=== PATIENT | male | born 1995 | race Caucasian/White ===

== ENCOUNTER 2018-05-22 18:30 | Emergency (ER) | payer SELFPAY ==
[~2018-05-22] VITALS: Ht 172.7 cm; Wt 70.0 kg
[2018-05-22 18:47] VITALS: BP 129/87; PULSE 91; RESP 18; TEMP 98.4; O2SAT 99
[2018-05-22 19:00] VITALS: BP 189/118; PULSE 86; RESP 18; O2SAT 96
--- NOTE | 2018-05-22 20:49 | PD ---
HPI Chief Complaint: Abdominal Pain Time Seen by Provider: 20:42 Travel History International Travel<30 days: No Contact w/Intl Traveler<30days: No Traveled to known affect area: No History of Present Illness HPI Patient is a 23-year-old male who has had Crohn's disease since he was 18 the 8 months ago had a perirectal abscess drained surgically in [place] where he is from now he says it continued to drain pus every day and he has no doctor here in the state of [place] he is not on any prednisone he is not on mercaptopurine he is on Asacol he is on no meds for Crohn's he has a surgical history of having had a colostomy at the age of 18 it was afraid months and then had a reanastomosis surgery done current complaint is diarrhea excessive draining from a perirectal abscess fistula and patient is denying nausea denying fever he has not taking any medication for this and he has no doctor nor any medication prescribed at this time recently moved to [place] from [facility] Past Medical History Diminished Hearing: No Gastrointestinal Disorders: Yes (CRHONS) Immunizations Current: Yes Pancreatitis: Yes ?: Not Past Surgical History Genitourinary Surgery: Yes (CHOLOSTOMY WITH REVERSAL) Tonsillectomy: Yes Social History Alcohol Use: No Tobacco Use: Yes (/2 PPD) Substance Use: No Allergies-Medications (Allergen,Severity, Reaction): Coded Allergies: adhesive (Verified Allergy, Severe, 05/22/18) Reported Meds & Prescriptions Reported Meds & Active Scripts Active Tramadol (Tramadol HCl) 50 Mg Tab 50 Mg PO Q6H PRN Prednisone 20 Mg Tab 40 Mg PO DAILY Flagyl (Metronidazole) 500 Mg Tab 500 Mg PO TID Cipro (Ciprofloxacin HCl) 500 Mg Tab 500 Mg PO BID Review of Systems Except as stated in HPI: all other systems reviewed are Neg General / Constitutional: No: Fever, Chills Gastrointestinal: Positive: Nausea, Diarrhea (Rectal pain and drainage from a rectal fistula from perirectal abscess), Abdominal Pain Physical Exam Narrative GENERAL: Nontoxic appearing awake alert afebrile SKIN: Warm and dry. HEAD: Atraumatic. Normocephalic. EYES: Pupils equal and round. No scleral icterus. No injection or drainage. ENT: No nasal bleeding or discharge. Mucous membranes pink and moist. NECK: Trachea midline. No JVD. CARDIOVASCULAR: Regular rate and rhythm. RESPIRATORY: No accessory muscle use. Clear to auscultation. Breath sounds equal bilaterally. GASTROINTESTINAL: Abdomen soft, tenderness lower abdomen right as well suprapubic as well as left patient has no pain in the epigastrium nor no pain in the right upper quadrant Rectal exam is there is a fistula on the left perirectal area draining yellowish purulent like drainage no significant abscess felt but there is a fistula but has a drainage. MUSCULOSKELETAL: Extremities without clubbing, cyanosis, or edema. No obvious deformities. NEUROLOGICAL: Awake and alert. No obvious cranial nerve deficits. Motor grossly within normal limits. Five out of 5 muscle strength in the arms and legs. Normal speech. PSYCHIATRIC: Appropriate mood and affect; insight and judgment normal. Data Data Last Documented VS Vital Signs Date Time Temp Pulse Resp B/P (MAP) Pulse Ox O2 Delivery O2 Flow Rate FiO2 05/23/18 06:11 05/23/18 05:00 71 18 99 Room Air 05/22/18 18:47 98.4 Orders Orders Diatrizoate Liq ( Gastroview Liq) (05/22/18 21:00) Sodium Chlor 0.9% 1000 Ml Inj (Ns 1000 M (05/22/18 21:00) Complete Blood Count With Diff (05/22/18 20:49) Comprehensive Metabolic Panel (05/22/18 20:49) Blood Culture (05/22/18 20:49) Lipase (05/22/18 20:49) Lactic Acid (05/22/18 20:49) Oral Contrast - Adult (05/22/18 20:55) Morphine Inj (Morphine Inj) (05/22/18 22:30) Ct Abd/Pel W Iv Contrast(Rout) (05/23/18 ) Iohexol 350 Inj (Omnipaque 350 Inj) (05/23/18 00:30) Piperacil-Tazo 3.375 Gm Premix (Zosyn 3. (05/23/18 02:00) Vancomycin Inj (Vancomycin Inj) (05/23/18 02:00) Morphine Inj (Morphine Inj) (05/23/18 03:15) Ed Discharge Order (05/23/18 05:55) Labs Laboratory Tests Test 05/22/18 21:00 White Blood Count 12.6 TH/MM3 Red Blood Count 5.23 MIL/MM3 Hemoglobin 15.7 GM/DL Hematocrit 46.5 % Mean Corpuscular Volume 88.9 FL Mean Corpuscular Hemoglobin 30.0 PG Mean Corpuscular Hemoglobin Concent 33.7 % Red Cell Distribution Width 15.0 % Platelet Count 395 TH/MM3 Mean Platelet Volume 6.3 FL Neutrophils (%) (Auto) 68.1 % Lymphocytes (%) (Auto) 23.9 % Monocytes (%) (Auto) 5.1 % Eosinophils (%) (Auto) 1.5 % Basophils (%) (Auto) 1.4 % Neutrophils # (Auto) 8.6 TH/MM3 Lymphocytes # (Auto) 3.0 TH/MM3 Monocytes # (Auto) 0.6 TH/MM3 Eosinophils # (Auto) 0.2 TH/MM3 Basophils # (Auto) 0.2 TH/MM3 CBC Comment DIFF FINAL Differential Comment Blood Urea Nitrogen 13 MG/DL Creatinine 1.03 MG/DL Random Glucose 82 MG/DL Total Protein 8.2 GM/DL Albumin 3.8 GM/DL Calcium Level 9.4 MG/DL Alkaline Phosphatase 93 U/L Aspartate Amino Transf (AST/SGOT) 14 U/L Alanine Aminotransferase (ALT/SGPT) 17 U/L Total Bilirubin 0.4 MG/DL Sodium Level 140 MEQ/L Potassium Level 3.5 MEQ/L Chloride Level 105 MEQ/L Carbon Dioxide Level 27.7 MEQ/L Anion Gap 7 MEQ/L Estimat Glomerular Filtration Rate 89 ML/MIN Lactic Acid Level 1.4 mmol/L Lipase 153 U/L MDM Medical Decision Making Medical Screen Exam Complete: Yes Emergency Medical Condition: Yes Differential Diagnosis Differential diagnosis includes Crohn exacerbation perirectal abscess fistula versus anal fissure versus ulcerative colitis versus colitis NOS versus other Narrative Course CT ordered labs ordered blood cultures lactic acid exam shows a fistula with drainage of purulent-like material Pt offered admission but he would like to follow up as an outpt , I spoke to Dr Marc and he will see as outpt , I given flagyl and cipro . pt refused admission and want to take prednisone an dcipro to see if symptoms resolve Dr Marc Phone given to pt follow up as outpt Physician Communication Physician Communication Dr Marc colorectal Diagnosis Primary Impression: Rectal abscess Referrals: Andrew Marc MD Patient Instructions: General Instructions, Rectal Abscess (ED) Scripts Tramadol (Tramadol) 50 Mg Tab 50 MG PO Q6H Y for PAIN, #12 TAB 0 Refills Prov: Phil Be MD 05/23/18 Prednisone (Prednisone) 20 Mg Tab 40 MG PO DAILY, #14 TAB 0 Refills Prov: Phil Be MD 05/23/18 Metronidazole (Flagyl) 500 Mg Tab 500 MG PO TID for Infection, #30 TAB 0 Refills Prov: Phil eB MD 05/23/18 Ciprofloxacin (Cipro) 500 Mg Tab 500 MG PO BID for Infection, #20 TAB 0 Refills Prov: Phil Be MD 05/23/18 Disposition: 01 DISCHARGE HOME Condition: Good Phil Be MD May 22, 2018 20:49
[2018-05-22] MEDS ORDERED: DIATRIZOATE MEGLUM/DIATRIZOATE SOD 9 ML CUP PO ONE (21:00)
[2018-05-22] MEDS ORDERED: SODIUM CHLOR 0.9% 1000 ML INJ 1,000 ML IV ONE (21:00)
[2018-05-22 21:18] VITALS: BP 117/80; PULSE 75; RESP 18; O2SAT 99
[2018-05-22 21:35] LABS: AUTOMATED NEUTROPHIL # 8.6 TH/MM3 (1.8-7.7); BASOPHIL # 0.2 TH/MM3 (0-0.2); BASOPHIL % 1.4 % (0.0-2.0); EOSINOPHIL # 0.2 TH/MM3 (0-0.4); EOSINOPHIL % 1.5 % (0.0-4.0); HEMATOCRIT 46.5 % (39.0-51.0); HEMOGLOBIN 15.7 GM/DL (13.0-17.0); LYMPH % 23.9 % (9.0-44.0); MEAN CELL VOLUME 88.9 FL (80.0-100.0); MEAN CORPUSCULAR HGB CONC 33.7 % (32.0-36.0); MEAN PLATELET VOLUME 6.3 FL (7.0-11.0); MONO % 5.1 % (0.0-8.0); MONOCYTE # 0.6 TH/MM3 (0-0.9); NEUT % 68.1 % (16.0-70.0); PLATELET COUNT 395 TH/MM3 (150-450); RED BLOOD COUNT 5.23 MIL/MM3 (4.50-5.90); WHITE BLOOD COUNT 12.6 TH/MM3 (4.0-11.0)
[2018-05-22 22:03] LABS: ALBUMIN 3.8 GM/DL (3.4-5.0); AST (GOT) 14 U/L (15-37); BICARBONATE 27.7 MEQ/L (21.0-32.0); BLOOD UREA NITROGEN 13 MG/DL (7-18); CALCIUM 9.4 MG/DL (8.5-10.1); CHLORIDE 105 MEQ/L (98-107); CREATININE 1.03 MG/DL (0.60-1.30); GLOMERULAR FILTRATION RATE 89 ML/MIN (>89); GLUCOSE,RANDOM 82 MG/DL (74-106); SODIUM (NA) 140 MEQ/L (136-145)
[2018-05-22 22:04] LABS: ALT (GPT) 17 U/L (12-78)
[2018-05-22 22:06] LABS: ALKALINE PHOSPHATASE 93 U/L (45-117); TOTAL BILIRUBIN ADULT 0.4 MG/DL (0.2-1.0); TOTAL PROTEIN 8.2 GM/DL (6.4-8.2)
[2018-05-22] MEDS ORDERED: MORPHINE SULFATE 4 MG/ML INJ IV PUSH ONE (22:30)
[2018-05-23] MEDS ORDERED: IOHEXOL 350 MG/ML 10 ML VIAL (for RAD DIAG) IVCONTRAST ONE (00:30)
[2018-05-23 00:48] VITALS: BP 109/69; PULSE 63; RESP 18; O2SAT 97
--- NOTE | 2018-05-23 01:33 | RADRPT ---
EXAM DATE: 05/23/2018 1:25 AM EDT AGE/SEX: 23 years / Male INDICATIONS: Perirectal abscess. CLINICAL DATA: This is the patient's initial encounter. Patient reports that signs and symptoms have been present for 7 - 11 months and indicates a pain score of 8/10. MEDICAL/SURGICAL HISTORY: Crohn's disease. Pancreatitis. Colostomy. Patient had an abscess dra bella in [place] 8 months ago. ORAL CONTRAST: Prescribed oral contrast ingested. RADIATION DOSE: 6.64 CTDI (mGy) COMPARISON: No prior exams available for comparison. TECHNIQUE: Multiple contiguous axial images were obtained through the abdomen and pelvis following b olus infusion of 95 ml Omnipaque 350 (iohexol) nonionic water-soluble contrast as a single exam dos e. Prescribed oral contrast ingested. Using automated exposure control and adjustment of the mA and/ or kV according to patient size, radiation dose was kept as low as reasonably achievable to obtain op timal diagnostic quality images. DICOM format image data is available electronically for review and comparison. FINDINGS: Lower Lungs: The visualized lower lungs are clear. Liver: The liver has a homogeneous density without space-occupying lesion. There is no dilation of th e biliary tree. Spleen: Homogeneous density without enlargement. Pancreas: Unremarkable without mass or calcification. Kidneys: Normal in size and shape. No evidence of mass or hydronephrosis. Adrenal Glands: Unremarkable. Aorta: The aorta and proximal iliac vessels are grossly unremarkable without aneurysmal dilation. Bowel/Mesentery: There is unremarkable bowel gas pattern. Perirectal soft tissues are abnormally pro minent and indistinct with patchy areas of enhancement. There are several small gas collections along the right side of the rectum. There is a small fluid collection is well measuring up to approximatel y 2 cm in greatest diameter. Abdominal Wall: Intact. Retroperitoneum: No evidence of adenopathy in the retrocrural, para-aortic, or deep pelvic regions. Bladder: Contours are smooth. Reproductive Organs: No abnormal masses or calcifications seen. Inguinal: The inguinal region is unremarkable without evidence of adenopathy. Bony Structures: Unremarkable. CONCLUSION: 1. Perirectal abscess with soft tissue thickening, irregular enhancement and multiple small gas nicki ections and fluid along the right side. Electronically signed by: Martin Sanhcez MD 05/23/2018 1:32 AM EDT
[2018-05-23] MEDS ORDERED: PIPERACIL-TAZO 3.375 GM PREMIX 50 ML IV ONE (02:00)
[2018-05-23] MEDS ORDERED: VANCOMYCIN INJ 1,000 MG in SODIUM CHLOR 0.9% 250 ML INJ 250 ML IV ONE (02:00)
[2018-05-23] MEDS ORDERED: MORPHINE SULFATE 4 MG/ML INJ IV PUSH ONE (03:15)
[2018-05-23 05:00] VITALS: BP 113/77; PULSE 71; RESP 18; O2SAT 99
[2018-05-23] MEDS ORDERED: CIPR-9 PO (05:54)
[2018-05-23] MEDS ORDERED: METR-1 PO (05:54)
[2018-05-23] MEDS ORDERED: TRAM50TA PO (05:55)
[2018-05-23] MEDS ORDERED: PRED20 PO (05:55)
== END 2018-05-23 06:11 | disposition home or self-care (01) ==
LOC: NEPE 18:30
DX: K61.1 Rectal abscess (principal); F17.200 Nicotine dependence, unspecified, uncomplicated; Z87.19 Personal history of other diseases of the digestive system; Z79.899 Other long term (current) drug therapy
CPT/HCPCS: 74177; 80053; 83605; 83690; 85025; 87040; 96361; 96365; 96367; 96375; 96376; 99285; J2270; J2543; J3370; J7030; J7050; Q9963; Q9967

== ENCOUNTER 2018-07-12 05:33 | Inpatient (IN) ==
[2018-07-12] MEDS ORDERED: Morphine Inj 4 MG/ML Vial IV.PUSH ONE ×2 (07:54→11:52)
[2018-07-12] MEDS ORDERED: Sod Chloride 0.9% Inj 1,000 ML IV.SIG ONE (07:54)
[2018-07-12 08:17] LABS: Baso # (Auto) 0.1 th/mm3 (0.0-0.2); Baso % (Auto) 0.5 % (0.0-2.0); Eos # (Auto) 0.2 th/mm3 (0.0-0.4); Lymph # (Auto) 3.4 th/mm3 (1.0-4.8); Lymph % (Auto) 21.8 % (9.0-44.0); Mean Corpuscular HGB Conc 33.4 % (32.0-36.0); Mean Corpuscular Hemoglobin 31.1 pg (27.0-34.0); Mean Corpuscular Volume 93.1 fL (80.0-100.0); Mean Platelet Volume 6.3 fL (7.0-11.0); Mono # (Auto) 1.3 th/mm3 (0.0-0.9); Mono % (Auto) 8.3 % (0.0-8.0); Neut # (Auto) 10.7 th/mm3 (1.8-7.7); Neut % (Auto) 68.4 % (16.0-70.0); Platelet Count 344 th/mm3 (150-450); Red Blood Count 4.83 mil/mm3 (4.50-5.90); Red Cell Distribution Width 14.8 % (11.6-17.2); White Blood Count 15.6 th/mm3 (4.0-11.0)
--- NOTE | 2018-07-12 08:18 | ED ---
HPI General Chief Complaint: Abdominal Pain Stated Complaint: Abd pain Time Seen by Provider: 07/12/18 07:40 Source: patient Mode of arrival: ambulatory Limitations: no limitations History of Present Illness HPI narrative: Patient is a 23-year-old male, past medical history significant for Crohn's disease, not currently on any medications nor followed by GI here, who presents with complaint of worsening abscess. He states that approximately months ago he was diagnosed with a perirectal abscess which has been intermittently draining since. He states that the pain has worsened and he can no longer lie on his back to sleep. He also complains of right lower quadrant abdominal pain which has been ongoing throughout most of this illness and migrates to the right side of his groin. He has had diarrhea which has been bloody but no fever that he is aware of. No chest pain or shortness of breath. complaint: abdominal pain Onset (ago): month(s) Pain Consistency: constant Location: RLQ Severity: mild Quality: stabbing Relieving factors: nothing Exacerbating factors: bowel movement Associated symptoms: diarrhea Related Data Home Medications Medication Instructions Recorded Confirmed No Known Home Medications 07/12/18 07/12/18 Allergies Allergy/AdvReac Type Severity Reaction Status Date / Time adhesive Allergy Severe Rash Verified 07/12/18 06:13 Review of Systems ROS: all other systems reviewed are negative Constitutional Denies chills and Denies fever(s) Eyes Denies blurry vision ENT Denies nasal congestion Cardiovascular Denies chest pain Respiratory Denies dyspnea Gastrointestinal Reports abdominal pain, Reports diarrhea, Denies nausea and Denies vomiting Genitourinary Denies flank pain Musculoskeletal Denies back pain Integumentary/Breasts Denies rash Neurologic Denies dizziness and Denies headache(s) Psychiatric Denies confusion Hematologic/Lymphatic Denies easy bruising [facility] Medical History Medical History Crohns disease (Acute) Rectal abscess (Acute) Social History Social History Substance History: No History of Abuse Second Hand Smoke Exposure: Yes Smoking Status: Current every day smoker Tobacco Type: Cigarettes How Often Do You Have a Drink Containing Alcohol: Never Recent Travel in [facility] within the Last 8 Weeks: No Recent Out of Country Travel within the Last 8 Weeks: No Immunization History Tetanus Immunization: Never Vaccinated Hx Influenza Vaccine This Season: Yes Exam Narrative Exam Narrative: GENERAL: Well-appearing male in no acute distress, lying on his left side SKIN: Focused skin assessment warm/dry. No rashes. HEAD: Atraumatic. Normocephalic. EYES: Pupils equal and round. No scleral icterus. No injection or drainage. ENT: No nasal bleeding or discharge. Mucous membranes pink and moist. NECK: Trachea midline. No JVD. CARDIOVASCULAR: Regular rate and rhythm. No murmur appreciated. RESPIRATORY: No accessory muscle use. Clear to auscultation. Breath sounds equal bilaterally. GASTROINTESTINAL: Abdomen soft, nondistended. Slight tenderness in the right lower quadrant. Scars from previous colostomy and reversal. Hepatic and splenic margins not palpable. Area of induration, and erythema, swelling around the rectum with purulent drainagepatient did not tolerate a rectal exam (RN was also at bedside). Right inguinal lymphadenopathy. MUSCULOSKELETAL: No obvious deformities. No clubbing. No cyanosis. No edema. NEUROLOGICAL: Awake and alert. No obvious cranial nerve deficits. Motor grossly within normal limits. Normal speech. PSYCHIATRIC: Appropriate mood and affect; insight and judgment normal. Course Hospital Course: On arrival, IV was established. Analgesics. anti-emetics and fluids ordered with labs, and CT. Initial Documented Vital Signs Temperature 98.3 F 07/12/18 06:13 Pulse Rate 90 07/12/18 06:13 Respiratory Rate 16 07/12/18 06:13 Blood Pressure 136/83 07/12/18 06:13 Pulse Oximetry 100 07/12/18 06:13 Last Documented Vital Signs Temperature 98.3 F 07/12/18 06:13 Pulse Rate 81 07/12/18 07:31 Respiratory Rate 17 07/12/18 07:31 Blood Pressure 136/82 07/12/18 07:31 Pulse Oximetry 100 07/12/18 08:24 Medical Decision Making [facility] Narrative Medical decision making narrative: Patient is a 23-year-old male, past medical history significant for Crohn's disease not currently on any medication, presents with complaint of rectal pain and bloody diarrhea. He is hemodynamically stable while in the emergency department. Labs revealed a leukocytosis and CT did not show an abscess but did show thickening of the wall of the rectum and intestines concerning for colitis. He was given Zosyn and admitted to the hospital to Dr. Vargas, hospitalist on-call, for further evaluation and management. Differential Diagnosis Differential Diagnosis: Differential diagnosis includes but is not limited to perirectal abscess, perianal abscess, perianal fistula, appendicitis. Medical Records Medical records reviewed: Yes I reviewed the patient's medical records. Lab Data Lab results reviewed: Yes I reviewed the patient's lab results. Lab results narrative: Leukocytosis present. Result diagrams: 07/12/18 08:00 07/12/18 08:00 Lab Results 07/12/18 07/12/18 Range/Units 08:00 08:00 WBC 15.6 H (4.0-11.0) th/mm3 RBC 4.83 (4.50-5.90) mil/mm3 Hgb 15.0 (13.0-17.0) gm/dL Hct 45.0 (39.0-51.0) % MCV 93.1 (80.0-100.0) fL MCH 31.1 (27.0-34.0) pg MCHC 33.4 (32.0-36.0) % RDW 14.8 (11.6-17.2) % Plt Count 344 (150-450) th/mm3 MPV 6.3 L (7.0-11.0) fL Neut % (Auto) 68.4 (16.0-70.0) % Lymph % (Auto) 21.8 (9.0-44.0) % Jay % (Auto) 8.3 H (0.0-8.0) % Eos % (Auto) 1.0 (0.0-4.0) % Baso % (Auto) 0.5 (0.0-2.0) % Neut # (Auto) 10.7 H (1.8-7.7) th/mm3 Lymph # (Auto) 3.4 (1.0-4.8) th/mm3 Jay # (Auto) 1.3 H (0.0-0.9) th/mm3 Eos # (Auto) 0.2 (0.0-0.4) th/mm3 Baso # (Auto) 0.1 (0.0-0.2) th/mm3 WBC Differential . Differential Comment Auto diff final Sodium 142 (136-145) meq/L Potassium 3.4 L (3.5-5.1) meq/L Chloride 106 (98-107) meq/L Carbon Dioxide 29.4 (21.0-32.0) meq/L Anion Gap 7 (5-15) meq/L BUN 9 (7-18) mg/dL Creatinine 0.88 (0.60-1.30) mg/dL Estimated GFR Greater than 89 (>89) mL/min Random Glucose 70 L (74-106) mg/dL Calcium 8.9 (8.5-10.1) mg/dL Imaging Data Attestation: I personally reviewed and interpreted this imaging study as follows : My impression: No Abscess. Radiologist's impression: Abdomen/Pelvis CT 07/12/18 07:54 CONCLUSION: 1. Wall thickening within the rectum and distal small bowel loops. 2. Partial right hemicolectomy. 3. No abscess. Discharge Plan Discharge Disposition Patient Disposition: 30 Still Patient Discharge Condition Condition: Stable Discharge Details Diagnosis: Colitis, Enteritis Physicians Team ED Provider: Bhumi Rodrigues Primary Care Provider: Primary Care Physici,Colleen Rxs /Orders / Referrals /Forms Prescriptions: No Action No Known Home Medications RF: 0 Status ED Status: With Doctor
[2018-07-12 08:37] LABS: Anion Gap 7 meq/L (5-15); Blood Urea Nitrogen 9 mg/dL (7-18); Calcium 8.9 mg/dL (8.5-10.1); Carbon Dioxide 29.4 meq/L (21.0-32.0); Chloride 106 meq/L (98-107); Glomerular Filtration Rate Greater Than 89 mL/min (>89); Glucose,Random 70 mg/dL (74-106); Potassium 3.4 meq/L (3.5-5.1); Sodium 142 meq/L (136-145)
--- NOTE | 2018-07-12 10:23 | CT ---
EXAM DATE: 07/12/2018 10:03 AM EDT AGE/SEX: 23 years / Male INDICATIONS: Lower abdomen and rectal pain for four days. CLINICAL DATA: This is the patient's initial encounter. Patient reports that signs and symptoms have been present for 4 - 6 days and indicates a pain score of 7/10. MEDICAL/SURGICAL HISTORY: . chron's disease None. ORAL CONTRAST: No oral contrast ingested. RADIATION DOSE: 6.64 CTDI (mGy) COMPARISON: [facility] [place], CT ABDOMEN & PELVIS W CONTRAST, 05/23/2018. . TECHNIQUE: Multiple contiguous axial images were obtained through the abdomen and pelvis following b olus infusion of 90 ml Omnipaque 350 (iohexol) nonionic water-soluble contrast as a single exam dos e. No oral contrast ingested. Using automated exposure control and adjustment of the mA and/or kV ac cording to patient size, radiation dose was kept as low as reasonably achievable to obtain optimal di agnostic quality images. DICOM format image data is available electronically for review and comparis on. FINDINGS: Lower Lungs: The visualized lower lungs are clear. Liver: The liver has a homogeneous density without space-occupying lesion. There is no dilation of th e biliary tree. Spleen: Homogeneous density without enlargement. Pancreas: Unremarkable without mass or calcification. Kidneys: Normal in size and shape. No evidence of mass or hydronephrosis. Adrenal Glands: Unremarkable. Aorta: The aorta and proximal iliac vessels are grossly unremarkable without aneurysmal dilation. Bowel/Mesentery: Rectal wall thickening. No significant inflammatory changes. Anastomotic sutures se en along the right colon. There is also some wall thickening involving ileum in the right abdomen.. Abdominal Wall: Intact. Retroperitoneum: No evidence of adenopathy in the retrocrural, para-aortic, or deep pelvic regions. Bladder: Contours are smooth. Reproductive Organs: No abnormal masses or calcifications seen. Inguinal: The inguinal region is unremarkable without evidence of adenopathy. Bony Structures: Unremarkable. CONCLUSION: 1. Wall thickening within the rectum and distal small bowel loops. 2. Partial right hemicolectomy. 3. No abscess. Electronically signed by: Wing Lazo MD 07/12/2018 10:21 AM EDT
[2018-07-12] MEDS ORDERED: Piperacil/Tazo 4.5 GM Premix 4.5 GM/100 ML BAG IV.SIG ONE (11:33)
[2018-07-12] MEDS ORDERED: Acetaminophen 325 MG Tablet PO PRN (13:18)
--- NOTE | 2018-07-12 13:40 | P.HPIM ---
History of Present Illness Primary Care Physician: No Primary Care Physician Chief Complaint: Rectal pain History of Present Illness: The patient is a 23-year-old male with a past medical history of Crohn's disease who is presenting to the hospital with significant pain in his rectum and right leg. The patient says that he has had a perirectal abscess for the past 8 months. He says it is constantly draining a yellow/white colored discharge. He says he tries to pack the area with toilet paper. He says he does not follow up with any doctor for it as he does not have any insurance. He has been treated with Flagyl and prednisone in the past. He says in 2013 he had a colostomy placed and that was reversed in 2015. The patient says that the pain in his rectum has been getting worse and he has also been having right upper leg pain. He feels like his right upper leg has an enlarged lymph node. He denies any fevers. He has been eating well. He does endorse some nausea. He has been experiencing some acid reflux. He says he recently moved here from [place]. He does not have any doctors in the area. Discussed with nursing and the ED physician. Inpatient Certification: I certify that the inpatient services were ordered in accordance with Medicare regulations governing the order. This includes certification that hospital inpatient services are reasonable and necessary and in the case of services not specified as inpatient-only under 42 CFR 419.22(n), that they are appropriately provided as inpatient services in accordance to with the 2-midnight benchmark under 43 CFR 412.3(e) Estimated Total Length of Stay (Days): 2 Plans for Post Hospital Care: Home Review of Systems All other systems reviewed negative except as stated in HPI PMFSH - History History Provided By: Patient - Medical History Medical History: Medical History (Last Updated 07/12/18 @ 13:35 by Martin Vargas DO) Crohns disease GERD (gastroesophageal reflux disease) Rectal abscess - Surgical History Surgical History: Surgical History (Last Updated 07/12/18 @ 13:47 by Martin Vargas DO) History of partial colectomy History of tonsillectomy and adenoidectomy - Family History Family History: Family History (Last Updated 07/12/18 @ 13:36 by Martin Vagras DO) Other Patient denies significant medical history - Tobacco History Second Hand Smoke Exposure: Yes Tobacco Use In Past 30 Days: Yes Smoking Status: Current every day smoker Tobacco Type: Cigarettes Packs Per Day: 0.5 - Alcohol History How Often Do You Have a Drink Containing Alcohol: Never - Substance Use History Substance History: No History of Abuse - Travel History Recent Travel in the [place] Within the Last 8 Weeks: No Recent Travel Out of the Country Within the Last 8 Weeks: No - Immunization History Tetanus Immunization: Never Vaccinated Hx Influenza Vaccine This Season: Yes Medications and Allergies Active Medications: Active Medications Acetaminophen (Tylenol) 650 mg PO Q4H PRN PRN Reason: Temp > 100.4 Sodium Chloride (Ns Inj) 1,000 mls @ 100 mls/hr IV.CONT .Q10H TAN Stop: 07/13/18 09:29 Ciprofloxacin/Dextrose (Cipro 400 Mg/200 Ml Inj) 400 mg in 200 mls @ 200 mls/ hr IV.SIG Q12H TAN Metronidazole/Sodium Chloride (Flagyl 500 Mg Inj) 100 mls @ 100 mls/hr IV.SIG Q8H TAN Lactobacillus Acidophilus (Lactinex Pkt) 1 gm PO TID TAN Morphine Sulfate (Morphine Inj) 4 mg IV.PUSH Q4H PRN PRN Reason: BREAKTHROUGH PAIN Ondansetron HCl (Zofran Inj) 4 mg IV.PUSH Q6H PRN PRN Reason: NAUSEA OR VOMITING Oxycodone HCl (Roxicodone) 5 mg PO Q4H PRN PRN Reason: pain 3-6 Oxycodone HCl (Roxicodone) 10 mg PO Q4H PRN PRN Reason: pain 7-10 Pantoprazole Sodium (Protonix) 40 mg PO DAILY TAN Senna/Docusate Sodium (Dana-Colace) 1 tab PO BID TAN Sodium Chloride (Ns Flush) 2 ml IV.FLUSH PRN PRN PRN Reason: FLUSH AFTER USING IV ACCESS Temazepam (Restoril) 15 mg PO HS PRN PRN Reason: INSOMNIA Allergies Allergy/AdvReac Type Severity Reaction Status Date / Time adhesive Allergy Severe Rash Verified 07/12/18 06:13 Home Medications Medication Instructions Recorded Confirmed Type No Known Home Medications 07/12/18 07/12/18 History Exam Vital signs: Vital Signs 07/12/18 06:13 07/12/18 07:31 07/12/18 08:24 Temperature 98.3 F Pulse Rate 90 81 Respiratory Rate 16 17 Blood Pressure 136/83 136/82 Pulse Oximetry 100 100 100 07/12/18 12:57 Temperature Pulse Rate 87 Respiratory Rate 15 Blood Pressure 120/71 Pulse Oximetry Intake & Output 07/11/18 07/12/18 07/12/18 18:59 06:59 18:59 Intake Total 1100 / 1100 Balance 1100 / 1100 Weight 65.771 kg Intake: IV 1100 / 1100 Zosyn 4.5 GM Premix 4.5 gm In 100 / 100 100 ml @ 200 mls/hr IV.SIG ONCE ONE Rx#:[id number] NS Inj 1,000 ML @ Wide Open IV. 1000 / 1000 SIG BOLUS ONE Rx#:[id number] Narrative: GENERAL: Well-appearing male in no acute distress. SKIN: Focused skin assessment warm/dry. No rashes. HEAD: Atraumatic. Normocephalic. EYES: Pupils equal and round. No scleral icterus. No injection or drainage. ENT: No nasal bleeding or discharge. Mucous membranes pink and moist. NECK: Trachea midline. No JVD. CARDIOVASCULAR: Regular rate and rhythm. No murmur appreciated. RESPIRATORY: No accessory muscle use. Clear to auscultation. Breath sounds equal bilaterally. GASTROINTESTINAL: Abdomen soft, nondistended. Slight tenderness in the right lower quadrant. Scars from previous colostomy and reversal. Hepatic and splenic margins not palpable. Area of induration, and erythema, swelling around the rectum with purulent drainage. Right inguinal lymphadenopathy. MUSCULOSKELETAL: No obvious deformities. No clubbing. No cyanosis. No edema. NEUROLOGICAL: Awake and alert. No obvious cranial nerve deficits. Motor grossly within normal limits. Normal speech. PSYCHIATRIC: Appropriate mood and affect; insight and judgment normal. Results - Labs CBC & Chem 7: 07/12/18 08:00 07/12/18 08:00 Labs: Short CBC 07/12/18 Range/Units 08:00 WBC 15.6 H (4.0-11.0) th/mm3 Hgb 15.0 (13.0-17.0) gm/dL Hct 45.0 (39.0-51.0) % Plt Count 344 (150-450) th/mm3 BMP 07/12/18 08:00 Sodium 142 Potassium 3.4 L Chloride 106 Carbon Dioxide 29.4 BUN 9 Creatinine 0.88 Calcium 8.9 - Imaging Impressions Abdomen/Pelvis CT 07/12/18 07:54 CONCLUSION: 1. Wall thickening within the rectum and distal small bowel loops. 2. Partial right hemicolectomy. 3. No abscess. Caprini VTE Risk Assessment Caprini VTE Risk Assessment: No/Low Risk (score <= 1) Caprini Risk Assessment Model: Point Value = 1 Point Value = 2 Point Value = 3 Point Value = 5 Age 41-60 Minor surgery BMI > 25 kg/m2 Swollen legs Varicose veins or History of unexplained or recurrent spontaneous Oral contraceptives or hormone replacement Sepsis (< 1 month) Serious lung disease, including pneumonia (< 1 month) Abnormal pulmonary function Acute myocardial infarction Congestive heart failure (< 1 month) History of inflammatory bowel disease Medical patient at bed rest Age 61-74 Arthroscopic surgery Major open surgery (> 45 min) Laparoscopic surgery (> 45 min) Malignancy Confined to bed (> 72 hours) Immobilizing plaster cast Central venous access Age >= 75 History of VTE Family history of VTE Factor V Leiden Prothrombin [id number] Lupus anticoagulant Anticardiolipin antibodies Elevated serum homocysteine Heparin-induced thrombocytopenia Other congenital or acquired thrombophilia Stroke (< 1 month) Elective arthroplasty Hip, pelvis, or leg fracture Acute spinal cord injury (< 1 month) Prophylaxis Regimen: Total Risk Factor Score Risk Level Prophylaxis Regimen 0-1 Low Early ambulation 2 Moderate Order ONE of the following: *Sequential Compression Device (SCD) *Heparin 5000 units SQ BID 3-4 Higher Order ONE of the following medications: *Heparin 5000 units SQ TID *Enoxaparin/Lovenox 40 mg SQ daily (WT < 150 kg, CrCl > 30 mL/min) *Enoxaparin/Lovenox 30 mg SQ daily (WT < 150 kg, CrCl > 10-29 mL/min) *Enoxaparin/Lovenox 30 mg SQ BID (WT < 150 kg, CrCl > 30 mL/min) AND/OR *Sequential Compression Device (SCD) 5 or more Highest Order ONE of the following medications: *Heparin 5000 units SQ TID (Preferred with Epidurals) *Enoxaparin/Lovenox 40 mg SQ daily (WT < 150 kg, CrCl > 30 mL/min) *Enoxaparin/Lovenox 30 mg SQ daily (WT < 150 kg, CrCl > 10-29 mL/min) *Enoxaparin/Lovenox 30 mg SQ BID (WT < 150 kg, CrCl > 30 mL/min) AND *Sequential Compression Device (SCD) Assessment and Plan - Plan Crohn's disease With history of perirectal abscess and constant drainage. CT of the abdomen showed: Wall thickening within the rectum and distal small bowel loops; Partial right hemicolectomy; No abscess. Colorectal surgery was supposed to see patient following previous ED visit in May but pt was unable to have outpt follow-up as has no insurance. -IV Cipro and Flagyl. -Colorectal surgery consult requested. -IVFs. -ADAT. -pain control with a bowel regimen. -follow culture data. GERD Acute on chronic. -start PPI. Hypokalemia/ Hypoglycemia Likely s/t decreased PO intake. -ADAT. -D5 1/2 NS with KCl. -follow BMP. Leukocytosis S/t above. Afebrile. No evidence of sepsis at this time. -treatment as above. -follow CBC. PPx: Ambulation Code Status: Full
[2018-07-12] MEDS ORDERED: Sod Chloride 0.9% Inj 1,000 ML IV.CONT SCH (14:00)
[2018-07-12] MEDS: KCL 20 mEq/D5W/NaCl 0.45% Inj 1,000 ML IV.CONT SCH ×2 (15:22→21:48)
[2018-07-12] MEDS: Ciprofloxacin 400 MG/200 ML 400 MG/200 ML PIGGYBACK IV.SIG SCH (17:18)
[2018-07-12] MEDS: Morphine Inj 4 MG/ML Vial IV.PUSH PRN ×2 (17:34→22:52)
[2018-07-12] MEDS: Senna/Docusate Sodium 8.6/50 MG Tablet PO SCH (21:41)
[2018-07-12] MEDS: Temazepam 15 MG Capsule PO PRN (23:00)
[2018-07-13] MEDS: Morphine Inj 4 MG/ML Vial IV.PUSH PRN ×5 (02:13→23:05)
[2018-07-13] MEDS: Ciprofloxacin 400 MG/200 ML 400 MG/200 ML PIGGYBACK IV.SIG SCH ×2 (06:08→18:05)
[2018-07-13 06:58] LABS: Baso # (Auto) 0.1 th/mm3 (0.0-0.2); Baso % (Auto) 0.5 % (0.0-2.0); Eos # (Auto) 0.2 th/mm3 (0.0-0.4); Eos % (Auto) 1.6 % (0.0-4.0); Hematocrit 38.6 % (39.0-51.0); Hemoglobin 13.3 gm/dL (13.0-17.0); Lymph # (Auto) 3.3 th/mm3 (1.0-4.8); Mean Corpuscular HGB Conc 34.5 % (32.0-36.0); Mean Corpuscular Hemoglobin 31.5 pg (27.0-34.0); Mean Corpuscular Volume 91.5 fL (80.0-100.0); Mean Platelet Volume 6.2 fL (7.0-11.0); Mono # (Auto) 1.2 th/mm3 (0.0-0.9); Mono % (Auto) 8.4 % (0.0-8.0); Neut % (Auto) 65.5 % (16.0-70.0); Platelet Count 308 th/mm3 (150-450); Red Blood Count 4.22 mil/mm3 (4.50-5.90); Red Cell Distribution Width 14.6 % (11.6-17.2); White Blood Count 13.7 th/mm3 (4.0-11.0)
[2018-07-13 07:36] LABS: Albumin 2.8 g/dL (3.4-5.0); Anion Gap 5 meq/L (5-15); Aspartate Aminotransferase 13 U/L (15-37); Blood Urea Nitrogen 13 mg/dL (7-18); Calcium 8.2 mg/dL (8.5-10.1); Carbon Dioxide 29.7 meq/L (21.0-32.0); Chloride 106 meq/L (98-107); Glomerular Filtration Rate Greater Than 89 mL/min (>89); Glucose,Random 102 mg/dL (74-106); Potassium 3.6 meq/L (3.5-5.1); Sodium 141 meq/L (136-145)
[2018-07-13 07:37] LABS: Alanine Aminotransferase 13 U/L (12-78)
[2018-07-13 07:39] LABS: Alkaline Phosphatase 62 U/L (45-117); Total Protein 6.1 g/dL (6.4-8.2)
[2018-07-13] MEDS: KCL 20 mEq/D5W/NaCl 0.45% Inj 1,000 ML IV.CONT SCH (08:14)
[2018-07-13] MEDS: Senna/Docusate Sodium 8.6/50 MG Tablet PO SCH (08:17)
--- NOTE | 2018-07-13 10:33 | P.PNCS ---
Subjective Colorectal Surgery Post Op Day #: 0 Interval history: Events reviewed Still c/o rectal drainage, liq stool no fever velia diet Objective Result Diagrams: 07/13/18 06:08 07/13/18 06:08 Objective Remarks: PE alert Abd - soft, incision healed, non tender Rectal - fistula lat part of canal, no cellulitis Assessment and Plan - Plan Imp: Hx Crohn's disease CT shows small darrell-rectal aur bubble - c/w fistula pt has had no Rx for Crohn's since 2014 will prep gently and sched colonoscopy/EUA, poss abscess drainge , seton placement
[2018-07-13] MEDS ORDERED: Magnesium Citrate Liq 300 ML Bottle PO ONE (11:00)
[2018-07-13 13:11] LABS: Bilirubin,Urine Negative (Negative); Clarity,Urine Hazy (Clear); Color,Urine Yellow (Yellw/Straw); Glucose,Urine (UA) Negative (Negative); Leukocyte Esterase,Urine Negative (Negative); Mucus,Urine Few /lpf (Occasional); Nitrite,Urine Negative (Negative); Specific Gravity,Urine 1.012 (1.002-1.035)
--- NOTE | 2018-07-13 14:30 | P.PNIM ---
Subjective Interval history: The patient stated that he was feeling a little bit better. He said that he talked with Dr. Marc earlier and was scheduled for a colonoscopy tomorrow. He said that he continued to have right-sided hip pain at times. He said that he was also experiencing drainage still. He said that he was prone to anxiety. Discussed with nursing. Physical Exam Vital signs: Vital Signs 07/12/18 15:47 07/12/18 20:00 07/13/18 00:00 Temperature 97.5 F L 98.3 F Pulse Rate 62 79 83 Respiratory Rate 15 18 18 Blood Pressure 101/60 122/77 135/83 Pulse Oximetry 100 100 07/13/18 08:00 07/13/18 12:00 Temperature 97.8 F 98.1 F Pulse Rate 78 75 Respiratory Rate 16 16 Blood Pressure 124/76 105/64 Pulse Oximetry 100 98 Intake & Output 07/12/18 07/13/18 07/13/18 18:59 06:59 18:59 Intake Total 1300 / 1300 1200 / 1200 100 / 100 Balance 1300 / 1300 1200 / 1200 100 / 100 Weight 65.771 kg Intake: IV 1300 / 1300 1200 / 1200 100 / 100 D5W/1/2NS + KCL 20 mEq Inj 1, 100 / 100 900 / 900 000 ML @ 125 mls/hr IV.CONT . Q8H TAN Rx#:[id number] Cipro 400 MG/200 ML Inj 400 mg 200 / 200 In 200 ml @ 200 mls/hr IV.SIG Q12H TAN Rx#:[id number] Zosyn 4.5 GM Premix 4.5 gm In 100 / 100 100 ml @ 200 mls/hr IV.SIG ONCE ONE Rx#:[id number] NS Inj 1,000 ML @ Wide Open IV. 1000 / 1000 SIG BOLUS ONE Rx#:[id number] Flagyl 500 MG Inj 100 ML @ 100 100 / 100 100 / 100 100 / 100 mls/hr IV.SIG Q8H TAN Rx#: [id number] Other 0 / 0 Other: # Voids 2 Date of Last Bowel Movement 07/12/18 Weight On Admission 65.77 kg Narrative: GENERAL: Well-appearing male in no acute distress. SKIN: Focused skin assessment warm/dry. No rashes. HEAD: Atraumatic. Normocephalic. EYES: Pupils equal and round. No scleral icterus. No injection or drainage. ENT: No nasal bleeding or discharge. Mucous membranes pink and moist. NECK: Trachea midline. No JVD. CARDIOVASCULAR: Regular rate and rhythm. No murmur appreciated. RESPIRATORY: No accessory muscle use. Clear to auscultation. Breath sounds equal bilaterally. GASTROINTESTINAL: Abdomen soft, nondistended. Slight tenderness in the right lower quadrant. Scars from previous colostomy and reversal. Hepatic and splenic margins not palpable. Area of induration, and erythema, swelling around the rectum with purulent drainage. MUSCULOSKELETAL: No obvious deformities. No clubbing. No cyanosis. No edema. RLE with tenderness around the right hip. NEUROLOGICAL: Awake and alert. No obvious cranial nerve deficits. Motor grossly within normal limits. Normal speech. Results - Labs CBC & Chem 7: 07/13/18 06:08 07/13/18 06:08 Laboratory Results - last 24 hr 07/13/18 07/13/18 07/13/18 06:08 06:08 12:00 WBC 13.7 H RBC 4.22 L Hgb 13.3 Hct 38.6 L MCV 91.5 MCH 31.5 MCHC 34.5 RDW 14.6 Plt Count 308 MPV 6.2 L Neut % (Auto) 65.5 Lymph % (Auto) 24.0 [place] % (Auto) 8.4 H Eos % (Auto) 1.6 Baso % (Auto) 0.5 Neut # (Auto) 9.0 H Lymph # (Auto) 3.3 [place] # (Auto) 1.2 H Eos # (Auto) 0.2 Baso # (Auto) 0.1 WBC Differential . Differential Comment Auto diff final Sodium 141 Potassium 3.6 Chloride 106 Carbon Dioxide 29.7 Anion Gap 5 BUN 13 Creatinine 1.00 Estimated GFR Greater than 89 Random Glucose 102 Calcium 8.2 L Total Bilirubin 0.3 AST 13 L ALT 13 Alkaline Phosphatase 62 Total Protein 6.1 L Albumin 2.8 L Urine Color Yellow Urine Clarity Hazy H Urine pH 7.0 Ur Specific [place] 1.012 Urine Protein Negative Urine Glucose (UA) Negative Urine Ketones Negative Urine Occult Blood Negative Urine Nitrate Negative Urine Bilirubin Negative Urine Urobilinogen Less than 2 Ur Leukocyte Esterase Negative Urine RBC 1 Urine WBC Less than 1 Urine Mucus Few H Micro UA Comment Culture not ind Urine Culture Comments Culture not ind Microbiology 07/12/18 18:00 Abscess - Buttock Gram Stain - Final Assessment and Plan - Plan Crohn's disease With history of perirectal abscess and constant drainage. CT of the abdomen showed: Wall thickening within the rectum and distal small bowel loops; Partial right hemicolectomy; No abscess. Colorectal surgery was supposed to see patient following previous ED visit in May but pt was unable to have outpt follow-up as has no insurance. -continue IV Cipro and Flagyl. -Colorectal surgery consult appreciated. Colonoscopy scheduled for the AM. -IVFs. -ADAT. -pain control with a bowel regimen. -follow culture data. GERD Acute on chronic. -started PPI. Hypokalemia/ Hypoglycemia Likely s/t decreased PO intake. -ADAT. -replete and monitor. Leukocytosis S/t above. Afebrile. No evidence of sepsis at this time. -treatment as above. -follow CBC. Improving. Right hip pain Exam with tenderness around the right hip. Possible sciatica. SLR mildly positive. -XR pending. PPx: Ambulation
[2018-07-13] MEDS: LORazepam 1 MG Tablet PO PRN (15:01)
--- NOTE | 2018-07-13 15:29 | XR ---
EXAM DATE: 07/13/2018 3:19 PM EDT AGE/SEX: 23 years / Male INDICATIONS: Posterior hip and groin pain. CLINICAL DATA: This is the patient's initial encounter. Patient reports that signs and symptoms have been present for 4 - 6 days and indicates a pain score of 6/10. MEDICAL/SURGICAL HISTORY: . Chron' s disease None. COMPARISON: No prior exams available for comparison. FINDINGS: Bony structures are intact and in normal alignment. Joints are intact without dislocation or signifi cant arthropathy. Osseous density is normal. Soft tissues are unremarkable. No radiopaque foreign bodies seen. CONCLUSION: No acute fracture or joint dislocation. Electronically signed by: Gaurav Be MD 07/13/2018 3:27 PM EDT
[2018-07-13] MEDS ORDERED: HYDROmorphone PF Inj 2 MG/ML Vial IV.PUSH ONE (20:45)
[2018-07-13] MEDS: Temazepam 15 MG Capsule PO PRN (23:05)
[2018-07-14] MEDS: LORazepam 1 MG Tablet PO PRN ×3 (02:32→21:12)
[2018-07-14] MEDS: Ciprofloxacin 400 MG/200 ML 400 MG/200 ML PIGGYBACK IV.SIG SCH ×2 (05:14→18:07)
[2018-07-14] MEDS: Morphine Inj 4 MG/ML Vial IV.PUSH PRN ×4 (06:28→21:57)
[2018-07-14 08:04] LABS: Baso % (Auto) 0.2 % (0.0-2.0); Eos # (Auto) 0.2 th/mm3 (0.0-0.4); Eos % (Auto) 1.4 % (0.0-4.0); Hematocrit 42.4 % (39.0-51.0); Hemoglobin 14.4 gm/dL (13.0-17.0); Lymph # (Auto) 2.2 th/mm3 (1.0-4.8); Lymph % (Auto) 14.7 % (9.0-44.0); Mean Corpuscular Hemoglobin 31.2 pg (27.0-34.0); Mean Corpuscular Volume 91.7 fL (80.0-100.0); Mean Platelet Volume 6.1 fL (7.0-11.0); Mono # (Auto) 1.4 th/mm3 (0.0-0.9); Mono % (Auto) 9.4 % (0.0-8.0); Neut # (Auto) 10.9 th/mm3 (1.8-7.7); Neut % (Auto) 74.3 % (16.0-70.0); Platelet Count 323 th/mm3 (150-450); Red Blood Count 4.62 mil/mm3 (4.50-5.90); Red Cell Distribution Width 14.5 % (11.6-17.2); White Blood Count 14.7 th/mm3 (4.0-11.0)
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
[2018-07-14] MEDS ORDERED: Glycopyrrolate Inj 1 MG/5 ML Syringe IV.PUSH ONE (12:00)
[2018-07-14] MEDS ORDERED: Ketorolac Inj 30 MG/ML (IVP) Vial IV.PUSH ONE (12:00)
[2018-07-14] MEDS ORDERED: Neostigmine Inj 5 MG/5 ML Syringe IV.PUSH ONE (12:00)
[2018-07-14] MEDS ORDERED: Lidocaine PF 1% Inj 5 ML Syringe INFILTRATN ONE (12:00)
[2018-07-14] MEDS ORDERED: Bupivacaine/Epinephrine 0.5% Inj 50 ML Vial ONE (16:19)
[2018-07-14] MEDS ORDERED: Lidocaine 2% Inj 50 ML Vial ONE (16:19)
[2018-07-14] MEDS ORDERED: Lidocaine 1%/Epinephrine 1:100,000 Inj 50 ML Vial ONE (16:20)
[2018-07-14] MEDS ORDERED: Lidocaine 2%/Epinephrine 1:200,000 PF Inj 20 ML Vial ONE (16:20)
[2018-07-14] MEDS ORDERED: fentaNYL Citrate Inj 100 MCG/2 ML Ampul ONE (17:45)
[2018-07-14] MEDS ORDERED: *morphine SULFATE 4 MG/ML PERIprocedure ONLY ONE (18:23)
[2018-07-14] MEDS ORDERED: HYDROmorphone PF Inj 2 MG/ML Vial IV.PUSH ONE (23:56)
[2018-07-15] MEDS: Morphine Inj 4 MG/ML Vial IV.PUSH PRN ×3 (02:29→06:13)
[2018-07-15] MEDS: Ciprofloxacin 400 MG/200 ML 400 MG/200 ML PIGGYBACK IV.SIG SCH (05:06)
[2018-07-15 07:09] LABS: Baso % (Auto) 0.1 % (0.0-2.0); Hematocrit 42.6 % (39.0-51.0); Hemoglobin 14.2 gm/dL (13.0-17.0); Lymph # (Auto) 0.6 th/mm3 (1.0-4.8); Lymph % (Auto) 3.8 % (9.0-44.0); Mean Corpuscular HGB Conc 33.3 % (32.0-36.0); Mean Corpuscular Hemoglobin 30.9 pg (27.0-34.0); Mean Platelet Volume 6.2 fL (7.0-11.0); Mono # (Auto) 0.3 th/mm3 (0.0-0.9); Neut # (Auto) 15.7 th/mm3 (1.8-7.7); Neut % (Auto) 94.1 % (16.0-70.0); Platelet Count 354 th/mm3 (150-450); Red Blood Count 4.59 mil/mm3 (4.50-5.90); Red Cell Distribution Width 14.4 % (11.6-17.2); White Blood Count 16.7 th/mm3 (4.0-11.0)
[2018-07-15] MEDS: LORazepam 1 MG Tablet PO PRN ×3 (07:20→22:40)
[2018-07-15 07:51] LABS: Anion Gap 7 meq/L (5-15); Blood Urea Nitrogen 15 mg/dL (7-18); Calcium 9.5 mg/dL (8.5-10.1); Chloride 101 meq/L (98-107); Glomerular Filtration Rate Greater Than 89 mL/min (>89); Glucose,Random 116 mg/dL (74-106); Magnesium 2.3 mg/dL (1.5-2.5); Potassium 4.3 meq/L (3.5-5.1); Sodium 137 meq/L (136-145)
[2018-07-15] MEDS ORDERED: Morphine Inj 4 MG/ML Vial IV.SIG ONE (08:15)
[2018-07-15] MEDS: HYDROmorphone PF Inj 2 MG/ML Vial IV.PUSH PRN ×4 (10:53→23:50)
--- NOTE | 2018-07-15 11:23 | P.PNIM ---
Subjective Interval history: The patient was very anxious. He stated that he is on parole and is very concerned about staying in the hospital and not being able to work as that would complicate his parole. He says that the procedure yesterday was more complicated than he thought it was going to be. He does state that the pain in his right hip is much better. He says his anxiety and pain level are not well controlled at this time and requests extra pain medication. Discussed with nursing. Physical Exam Vital signs: Vital Signs 07/14/18 12:00 07/14/18 17:41 07/14/18 17:45 Temperature 97.8 F 97.7 F Pulse Rate 102 H 126 H 118 H Respiratory Rate 19 12 14 Blood Pressure 120/75 114/67 137/77 Pulse Oximetry 97 100 100 07/14/18 18:00 07/14/18 18:15 07/14/18 18:40 Temperature Pulse Rate 86 83 Respiratory Rate 12 11 L 13 Blood Pressure 138/62 119/57 L Pulse Oximetry 96 98 07/14/18 18:45 07/14/18 19:00 07/14/18 19:15 Temperature 98 F Pulse Rate 82 105 H 84 Respiratory Rate 13 26 H 15 Blood Pressure 117/59 L 120/56 L 112/57 L Pulse Oximetry 96 99 98 07/14/18 20:00 07/15/18 00:00 07/15/18 04:00 Temperature 97.5 F L 97.9 F 97.3 F L Pulse Rate 90 93 H 93 H Respiratory Rate 17 19 20 Blood Pressure 125/69 105/62 107/62 Pulse Oximetry 93 L 98 97 07/15/18 08:00 Temperature 97.3 F L Pulse Rate 82 Respiratory Rate 18 Blood Pressure 94/52 L Pulse Oximetry 96 Intake & Output 07/14/18 07/15/18 07/15/18 18:59 06:59 18:59 Intake Total 3000 / 3000 1300 / 1300 300 / 300 Output Total 25 / 25 500 / 500 Balance 2975 / 2975 800 / 800 300 / 300 Intake: IV 800 / 800 1300 / 1300 300 / 300 Cipro 400 MG/200 ML Inj 400 mg 200 / 200 200 / 200 200 / 200 In 200 ml @ 200 mls/hr IV.SIG Q12H TAN Rx#:[id number] LR 1000 mL Inj 1,000 ML @ 60 500 / 500 1000 / 1000 mls/hr IV.SIG .[id number] TAN Rx#: [id number] Flagyl 500 MG Inj 100 ML @ 100 100 / 100 100 / 100 100 / 100 mls/hr IV.SIG Q8H TAN Rx#: [id number] Oral 0 / 0 Anesthesia Amount 2200 / 2200 Output: Urine 500 / 500 Estimated Blood Loss 25 / 25 Other: # Voids 2 Date of Last Bowel Movement 07/13/18 07/13/18 Narrative: GENERAL: Agitated. SKIN: Focused skin assessment warm/dry. No rashes. HEAD: Atraumatic. Normocephalic. EYES: Pupils equal and round. No scleral icterus. No injection or drainage. ENT: No nasal bleeding or discharge. Mucous membranes pink and moist. NECK: Trachea midline. No JVD. CARDIOVASCULAR: Regular rate and rhythm. No murmur appreciated. RESPIRATORY: No accessory muscle use. Clear to auscultation. Breath sounds equal bilaterally. GASTROINTESTINAL: Abdomen soft, nondistended. Nontender. Scars from previous colostomy and reversal. Hepatic and splenic margins not palpable. Dressing over buttocks. MUSCULOSKELETAL: No obvious deformities. No clubbing. No cyanosis. No edema. NEUROLOGICAL: Awake and alert. No obvious cranial nerve deficits. Motor grossly within normal limits. Normal speech. Results - Labs CBC & Chem 7: 07/15/18 06:04 07/15/18 06:04 Laboratory Results - last 24 hr 07/15/18 07/15/18 06:04 06:04 WBC 16.7 H RBC 4.59 Hgb 14.2 Hct 42.6 MCV 93.0 MCH 30.9 MCHC 33.3 RDW 14.4 Plt Count 354 MPV 6.2 L Neut % (Auto) 94.1 H Lymph % (Auto) 3.8 L [place] % (Auto) 2.0 Eos % (Auto) 0.0 Baso % (Auto) 0.1 Neut # (Auto) 15.7 H Lymph # (Auto) 0.6 L [place] # (Auto) 0.3 Eos # (Auto) 0.0 Baso # (Auto) 0.0 WBC Differential . Differential Comment Auto diff final Sodium 137 Potassium 4.3 Chloride 101 Carbon Dioxide 29.0 Anion Gap 7 BUN 15 Creatinine 0.96 Estimated GFR Greater than 89 Random Glucose 116 H Calcium 9.5 D Magnesium 2.3 Microbiology 07/12/18 18:00 Abscess - Buttock Gram Stain - Final 07/12/18 18:00 Abscess - Buttock Wound Culture - Final Escherichia coli Assessment and Plan - Plan Crohn's disease With history of perirectal abscess and constant drainage. CT of the abdomen showed: Wall thickening within the rectum and distal small bowel loops; Partial right hemicolectomy; No abscess. Colorectal surgery was supposed to see patient following previous ED visit in May but pt was unable to have outpt follow-up as has no insurance. S/p I&D, fistulotomy 07/14. Wound culture growing E coli. -change antibiotics to IV ceftriaxone. -wound care per colorectal surgery. -pain control with a bowel regimen. GERD Acute on chronic. -started PPI. Hypokalemia/ Hypoglycemia Likely s/t decreased PO intake. -ADAT. -replete and monitor. Resolved. Leukocytosis S/t above. Afebrile. No evidence of sepsis at this time. -treatment as above. -follow CBC. PPx: Per surgery
[2018-07-16] MEDS ORDERED: Melatonin 5 MG Tablet PO PRN (01:06)
[2018-07-16 01:40] VITALS: RESP 18; O2SAT 97
[2018-07-16] MEDS: LORazepam 1 MG Tablet PO PRN (05:57)
[2018-07-16 06:12] LABS: Baso % (Auto) 0.2 % (0.0-2.0); Eos # (Auto) 0.1 th/mm3 (0.0-0.4); Eos % (Auto) 0.8 % (0.0-4.0); Hemoglobin 13.2 gm/dL (13.0-17.0); Lymph # (Auto) 2.5 th/mm3 (1.0-4.8); Lymph % (Auto) 22.9 % (9.0-44.0); Mean Corpuscular HGB Conc 34.6 % (32.0-36.0); Mean Corpuscular Volume 92.4 fL (80.0-100.0); Mean Platelet Volume 6.1 fL (7.0-11.0); Mono # (Auto) 1.3 th/mm3 (0.0-0.9); Mono % (Auto) 12.4 % (0.0-8.0); Neut # (Auto) 6.8 th/mm3 (1.8-7.7); Neut % (Auto) 63.7 % (16.0-70.0); Platelet Count 323 th/mm3 (150-450); Red Blood Count 4.11 mil/mm3 (4.50-5.90); Red Cell Distribution Width 14.5 % (11.6-17.2); White Blood Count 10.7 th/mm3 (4.0-11.0)
[2018-07-16] MEDS: HYDROmorphone PF Inj 2 MG/ML Vial IV.PUSH PRN (08:12)
--- NOTE | 2018-07-16 09:44 | P.DS ---
Date of admission: 07/12/18 12:09 Primary care physician: No Primary Care Physician Anticipated date of discharge: 07/16/18 Brief History from admission: The patient is a 23-year-old male with a past medical history of Crohn's disease who is presenting to the hospital with significant pain in his rectum and right leg. The patient says that he has had a perirectal abscess for the past 8 months. He says it is constantly draining a yellow/white colored discharge. He says he tries to pack the area with toilet paper. He says he does not follow up with any doctor for it as he does not have any insurance. He has been treated with Flagyl and prednisone in the past. He says in 2013 he had a colostomy placed and that was reversed in 2015. The patient says that the pain in his rectum has been getting worse and he has also been having right upper leg pain. He feels like his right upper leg has an enlarged lymph node. He denies any fevers. He has been eating well. He does endorse some nausea. He has been experiencing some acid reflux. He says he recently moved here from [place]. He does not have any doctors in the area. Discussed with nursing and the ED physician. DS: Diagnosis - Discharge Diagnosis (1) Enteritis Status: Acute DS: Medications - Discharge Medications Prescriptions: cefuroxime axetil 500 mg PO Q12H #10 tab lorazepam 1 mg PO Q12H PRN #6 tab PRN Reason: Anxiety nicotine (polacrilex) 4 mg CHEW Q1H PRN #30 ea PRN Reason: craving oxycodone 5 mg PO Q4H PRN #12 tab PRN Reason: Pain DS: Summary Hospital Course: Crohn's disease With history of perirectal abscess and constant drainage. CT of the abdomen showed: Wall thickening within the rectum and distal small bowel loops; Partial right hemicolectomy; No abscess. Colorectal surgery was supposed to see patient following previous ED visit in May but pt was unable to have outpt follow-up as he has no insurance. Colorectal surgery was consulted. S/p I&D, fistulotomy . Wound culture growing E coli. We changed antibiotics to IV ceftriaxone. The pt received wound care per colorectal surgery. He receive pain control with a bowel regimen. He will continue wound care per surgery recommendations and will follow up with surgery as an outpt. He will complete a course of PO Ceftin. Anxiety The pt was anxious and agitated at times. He said he had problems with his parole. He received Ativan as needed. Case management assisted with his parole situation. He will be discharged on a small supply of Ativan. - Time Spent with Patient Total time spent providing and/or coordinating discharge services: Less than 30 minutes - Quality: VTE Deep Vein Thrombosis/Pulmonary Embolism Present on Admission: No Exam Vital signs: Vital Signs 07/15/18 12:27 07/15/18 15:49 07/15/18 20:00 Temperature 97.9 F 97.7 F 97.4 F L Pulse Rate 80 80 Respiratory Rate 18 18 Blood Pressure 124/72 134/79 130/69 Pulse Oximetry 96 96 98 07/15/18 23:06 07/15/18 23:15 07/16/18 00:00 Temperature 97.7 F Pulse Rate 86 Respiratory Rate 20 20 18 Blood Pressure 127/82 Pulse Oximetry 97 07/16/18 08:12 Temperature Pulse Rate Respiratory Rate 18 Blood Pressure Pulse Oximetry Intake & Output 07/15/18 07/16/18 07/16/18 18:59 06:59 18:59 Intake Total 1150 / 1150 980 / 980 Output Total 1900 / 1900 Balance -750 / -750 980 / 980 Weight 68.2 kg Intake: IV 400 / 400 500 / 500 Cipro 400 MG/200 ML Inj 400 mg 200 / 200 In 200 ml @ 200 mls/hr IV.SIG Q12H TAN Rx#:[id number] LR 1000 mL Inj 1,000 ML @ 60 500 / 500 mls/hr IV.SIG .[id number] TAN Rx#: [id number] Rocephin Inj 1,000 MG In NS Inj 100 / 100 100 ML @ 200 mls/hr IV.SIG Q24H TAN Rx#:[id number] Flagyl 500 MG Inj 100 ML @ 100 100 / 100 mls/hr IV.SIG Q8H TAN Rx#: [id number] Oral 750 / 750 480 / 480 Output: Urine 1900 / 1900 Other: # Voids 3 Date of Last Bowel Movement 07/16/18 Narrative: GENERAL: Agitated. SKIN: Focused skin assessment warm/dry. No rashes. HEAD: Atraumatic. Normocephalic. EYES: Pupils equal and round. No scleral icterus. No injection or drainage. ENT: No nasal bleeding or discharge. Mucous membranes pink and moist. NECK: Trachea midline. No JVD. CARDIOVASCULAR: Regular rate and rhythm. No murmur appreciated. RESPIRATORY: No accessory muscle use. Clear to auscultation. Breath sounds equal bilaterally. GASTROINTESTINAL: Abdomen soft, nondistended. Nontender. Scars from previous colostomy and reversal. Hepatic and splenic margins not palpable. Dressing over buttocks. MUSCULOSKELETAL: No obvious deformities. No clubbing. No cyanosis. No edema. NEUROLOGICAL: Awake and alert. No obvious cranial nerve deficits. Motor grossly within normal limits. Normal speech. Results Procedures completed during hospitalization: See hospital course Pending studies at discharge: Pending at discharge 07/14/18 07:34 Surgical [PTH] Routine Labs on day of discharge: Labs from last 24 hours 07/16/18 06:00 WBC 10.7 RBC 4.11 L Hgb 13.2 Hct 38.0 L MCV 92.4 MCH 32.0 MCHC 34.6 RDW 14.5 Plt Count 323 MPV 6.1 L Neut % (Auto) 63.7 Lymph % (Auto) 22.9 [place] % (Auto) 12.4 H Eos % (Auto) 0.8 Baso % (Auto) 0.2 Neut # (Auto) 6.8 Lymph # (Auto) 2.5 [place] # (Auto) 1.3 H Eos # (Auto) 0.1 Baso # (Auto) 0.0 WBC Differential . Differential Comment Auto diff final - Impressions ITS Impressions Abdomen/Pelvis CT 07/12/18 07:54 CONCLUSION: 1. Wall thickening within the rectum and distal small bowel loops. 2. Partial right hemicolectomy. 3. No abscess. Hip X-Ray 07/13/18 00:00 CONCLUSION: No acute fracture or joint dislocation. Discharge Plan - Discharge Disposition Patient Disposition: 01 Discharge Home - Discharge Condition Condition: Stable - Discharge Order Discharge Orders: Discharge Order (Routine); Ordered 07/16/18 Ordered By: Martin Vargas Consult Other Clear for Discharge (Routine); Ordered 07/16/18 Ordered By: Andrew Marc - Discharge Details Anticipated Discharge Date: 07/16/18 - Physicians Team Primary Care Provider: Primary Care Physici,No Attending Provider: Martin Vargas Other Providers: Andrew Marc MD
[2018-07-16 10:43] VITALS: BP 121/66; PULSE 73; TEMP 97.4
--- NOTE | 2018-07-17 23:32 | MP ---
cc: Andrew Marc MD, Andrew H MD DATE OF OPERATION: 07/14/2018 PREOPERATIVE DIAGNOSIS: 1. History of Crohn disease. 2. Chronic ischiorectal abscess and fistula. PROCEDURE: 1. Colonoscopy to ileocolostomy. 2. Examination under anesthesia and extensive irrigation and debridement of ischiorectal abscess and posterior fistula. POSTOPERATIVE DIAGNOSIS: 1. Normal colonoscopy. 2. 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 SURGEON: Andrew Marc MD PROCEDURE: The patient was placed in the supine position. After adequate general anesthesia, he was turned to the left lateral decubitus position. Rectal exam confirmed the emptiness of the rectal vault. Olympus colonoscope was introduced into the rectum and advanced under direct vision through the proximal colon, noting some poor prep with some liquid and solid fecal material throughout the colon. Scope passed up with some abdominal pressure around what appeared to be the ileocolostomy. There was some granularity to the mucosa, but no signs of any active ulcerations or narrowing at the anastomosis. The colonoscope was then gradually withdrawn, noting normal mucosa throughout the distal colon. No luminal narrowing was noted. No obvious cobblestoning or any polyps seen. Visualization of the mucosa was somewhat hindered by the prep. The rectal vault appeared normal with some inflammatory change along the dentate line and very distal rectal mucosa. Next, the patient was placed in the left lateral decubitus position and his buttocks taped apart, prepped with Betadine solution and draped in the usual sterile fashion. There was an external opening in the left posterior quadrant and a probe passed through this into a cavity extending toward the posterior midline. The cavity was unroofed, identifying a cavity with minimal fluid content, but very thick chronic granulation tissue and well fibrosed rizzo. The tract continued around the posterior part of the canal over to the right ischiorectal space and then seemed to terminate. Cavity was liberally debrided and irrigated clear. No connection between this long tract could be demonstrated to the postanal space or any other parts of the anal canal. The cavity was irrigated and no fluid was seen entering the anal canal or rectal lumen. After adequate irrigation and debridement, skin was excised from the external opening for better drainage and sent for pathological examination. The cavity was then packed with a large Kerlix dressing and a large Fluff dressing externally. The patient tolerated the procedure quite well and was brought to the recovery room in stable condition. Sponge and needle counts were correct at the end of the procedure. MD PAULETTE Magaña/glenda , 10:48 PM , 10:57 PM
== END 2018-07-16 10:59 | disposition home or self-care (01) ==
LOC: NEPC 05:33 → NEDA 12:09 → N07 16:38
PROVIDERS: ADMIT Hospitalist; ATTEND Hospitalist
PROC: COLONOS (2018-07-14 16:18)

== ENCOUNTER 2018-08-01 05:41 | Inpatient (IN) ==
--- NOTE | 2018-08-01 06:30 | ED ---
HPI General Chief complaint: Skin/Abscess/Foreign Body Stated complaint: medical clearance Time Seen by Provider: 08/01/18 06:04 Source: patient Mode of arrival: ambulatory Limitations: no limitations History of Present Illness HPI narrative: Patient is a 23-year-old male who comes in complaining of pain and swelling to his right buttocks. He had a perirectal abscess drained by Dr. Marc 2 weeks ago. He says he was doing well until yesterday when he started to have pain and then noticed that he started to have swelling to the side of his buttocks. He says that he called the physician on-call for Dr. Marc's office and was told to come to the emergency department. He says the concern is that the abscess is built up again with the fistula. He does have history of Crohn's disease. He says that he has not taken anything for pain. He denies fever chills. He has noticed increased leakage of fluid from his original wound. Severity is moderate. Related Data Previous Rx's Medication Instructions Recorded lorazepam 1 mg PO Q12H PRN #6 tab 07/16/18 Allergies Allergy/AdvReac Type Severity Reaction Status Date / Time adhesive Allergy Severe Rash Verified 07/12/18 06:13 Review of Systems ROS: all other systems reviewed are negative Constitutional Denies chills and Denies fever(s) ENT Denies dizziness Cardiovascular Denies chest pain and Denies dyspnea Respiratory Denies cough Gastrointestinal Denies abdominal pain, Denies nausea and Denies vomiting Musculoskeletal Denies myalgias and Denies arthralgias Integumentary/Breasts Reports lesions and Reports sores Neurologic Denies focal weakness and Denies numbness [facility] Medical History GERD (gastroesophageal reflux disease) (Acute) Crohns disease (Acute) Rectal abscess (Acute) Surgical History Surgical History History of partial colectomy (Acute) History of tonsillectomy and adenoidectomy (Acute) Family History Family History Other Patient denies significant medical history Social History Social History Substance History: No History of Abuse Second Hand Smoke Exposure: Yes Smoking Status: Current every day smoker Tobacco Type: Cigarettes Packs Per Day: 0.5 Cigarettes Per Day: 10.0 How Often Do You Have a Drink Containing Alcohol: Never Recent Travel in [facility] within the Last 8 Weeks: No Recent Out of Country Travel within the Last 8 Weeks: No Immunization History Tetanus Immunization: >5 Years Hx Influenza Vaccine This Season: No Exam Narrative Exam Narrative: GENERAL: Awake and alert, no acute distress. SKIN: Wound to the left buttocks, and draining yellowish fluid. Tender to palpation of the right buttocks, no discernible abscess. HEAD: Atraumatic. Normocephalic. EYES: Pupils equal and round. No scleral icterus. No injection or drainage. ENT: No nasal bleeding or discharge. Mucous membranes pink and moist. NECK: Trachea midline. No JVD. CARDIOVASCULAR: Regular rate and rhythm. No murmur appreciated. RESPIRATORY: No accessory muscle use. Clear to auscultation. Breath sounds equal bilaterally. GASTROINTESTINAL: Abdomen soft, non-tender, nondistended. MUSCULOSKELETAL: No obvious deformities. No clubbing. No cyanosis. No edema. NEUROLOGICAL: Awake and alert. No obvious cranial nerve deficits. Motor grossly within normal limits. Normal speech. PSYCHIATRIC: Appropriate mood and affect; insight and judgment normal. Course Reevaluation(s) Reevaluation #1: Patient updated and agrees to admission Consultations Consultation #1: Dr. Marc states to admit to his service for OR later today Initial Documented Vital Signs Temperature 98.0 F 08/01/18 05:54 Pulse Rate 94 H 08/01/18 05:54 Respiratory Rate 18 08/01/18 05:54 Blood Pressure 122/61 08/01/18 05:54 Pulse Oximetry 99 08/01/18 05:54 Last Documented Vital Signs Temperature 97.9 F 08/01/18 08:50 Pulse Rate 83 08/01/18 08:50 Respiratory Rate 18 08/01/18 08:50 Blood Pressure 104/56 L 08/01/18 08:50 Pulse Oximetry 100 08/01/18 08:50 Sign Out Sign Out Data: Patient Sign Out occurred on 08/01/18 at 07:11. Patient's care was discussed, and care was transferred from Brandy Asif MD to Kori Edmonds MD. Sign Out Comment: Follow up labs, CT, disposition the patient. Last updated by Brandy Asif MD at 08/01/18 07:02 Medical Decision Making MDM Narrative Medical decision making narrative: Patient is a 23-year-old male who comes in complaining of pain to his right buttocks. Exam shows an open draining wound to the left buttocks, tenderness to palpation of the right. IV established, labs sent. CT abdomen and pelvis ordered. Patient given pain medicine. Medical Screen Exam Complete: Yes Emergency Medical Condition: Yes Differential Diagnosis Differential Diagnosis: Perirectal abscess versus cellulitis versus fistula Lab Data Lab results reviewed: Yes I reviewed the patient's lab results. Result diagrams: 08/01/18 06:28 08/01/18 06:28 Lab Results 08/01/18 08/01/18 08/01/18 Range/Units 06:28 06:28 06:28 WBC 14.2 H (4.0-11.0) th/mm3 RBC 4.71 (4.50-5.90) mil/mm3 Hgb 14.6 (13.0-17.0) gm/dL Hct 43.8 (39.0-51.0) % MCV 92.9 (80.0-100.0) fL MCH 31.0 (27.0-34.0) pg MCHC 33.4 (32.0-36.0) % RDW 14.3 (11.6-17.2) % Plt Count 363 (150-450) th/mm3 MPV 6.2 L (7.0-11.0) fL Neut % (Auto) 78.1 H (16.0-70.0) % Lymph % (Auto) 12.6 (9.0-44.0) % [place] % (Auto) 7.0 (0.0-8.0) % Eos % (Auto) 1.7 (0.0-4.0) % Baso % (Auto) 0.6 (0.0-2.0) % Neut # (Auto) 11.1 H (1.8-7.7) th/mm3 Lymph # (Auto) 1.8 (1.0-4.8) th/mm3 [place] # (Auto) 1.0 H (0.0-0.9) th/mm3 Eos # (Auto) 0.2 (0.0-0.4) th/mm3 Baso # (Auto) 0.1 (0.0-0.2) th/mm3 WBC Differential . Differential Comment Auto diff final PT 11.9 H (9.8-11.6) sec INR 1.2 Ratio APTT 29.3 (24.3-30.1) sec Sodium 142 (136-145) meq/L Potassium 4.0 (3.5-5.1) meq/L Chloride 109 H (98-107) meq/L Carbon Dioxide 23.6 (21.0-32.0) meq/L Anion Gap 9 (5-15) meq/L BUN 9 (7-18) mg/dL Creatinine 0.89 (0.60-1.30) mg/dL Estimated GFR Greater than 89 (>89) mL/min Random Glucose 82 (74-106) mg/dL Calcium 9.1 (8.5-10.1) mg/dL Total Bilirubin 0.7 (0.2-1.0) mg/dL AST 14 L (15-37) U/L ALT 19 (12-78) U/L Alkaline Phosphatase 71 (45-117) U/L Total Protein 7.4 (6.4-8.2) g/dL Albumin 3.3 L (3.4-5.0) g/dL Imaging Data Attestation: I personally reviewed and interpreted this imaging study as follows : Radiologist's impression: Abdomen/Pelvis CT 08/01/18 06:11 CONCLUSION: Findings of fistula or abscess surrounding the rectum as described above. Findings of ileus with abnormal thickening of the distal small bowel characteristic of active inflammatory process in Crohn's disease Discharge Plan Discharge Disposition Patient Disposition: 30 Still Patient Discharge Condition Condition: Stable Discharge Details Diagnosis: Rectal abscess, Fistula Physicians Team ED Provider: Kori Edmonds Primary Care Provider: Primary Care Colleen Ortiz Attending Provider: Andrew Marc Discharge Interventions Interventions: Vital Signs Last Done: 08/01/18 08:50 Status ED Status: Admitted Observation Patient
[2018-08-01 06:58] LABS: Activated Partial Thrombo Time 29.3 sec (24.3-30.1); INR 1.2 Ratio; Prothrombin Time 11.9 sec (9.8-11.6)
[2018-08-01 06:59] LABS: Baso # (Auto) 0.1 th/mm3 (0.0-0.2); Baso % (Auto) 0.6 % (0.0-2.0); Eos # (Auto) 0.2 th/mm3 (0.0-0.4); Eos % (Auto) 1.7 % (0.0-4.0); Hematocrit 43.8 % (39.0-51.0); Hemoglobin 14.6 gm/dL (13.0-17.0); Lymph # (Auto) 1.8 th/mm3 (1.0-4.8); Lymph % (Auto) 12.6 % (9.0-44.0); Mean Corpuscular HGB Conc 33.4 % (32.0-36.0); Mean Corpuscular Volume 92.9 fL (80.0-100.0); Mean Platelet Volume 6.2 fL (7.0-11.0); Neut # (Auto) 11.1 th/mm3 (1.8-7.7); Neut % (Auto) 78.1 % (16.0-70.0); Platelet Count 363 th/mm3 (150-450); Red Blood Count 4.71 mil/mm3 (4.50-5.90); Red Cell Distribution Width 14.3 % (11.6-17.2); White Blood Count 14.2 th/mm3 (4.0-11.0)
[2018-08-01 07:15] LABS: Alkaline Phosphatase 71 U/L (45-117); Total Protein 7.4 g/dL (6.4-8.2)
[2018-08-01 07:20] LABS: Alanine Aminotransferase 19 U/L (12-78); Albumin 3.3 g/dL (3.4-5.0); Anion Gap 9 meq/L (5-15); Aspartate Aminotransferase 14 U/L (15-37); Blood Urea Nitrogen 9 mg/dL (7-18); Calcium 9.1 mg/dL (8.5-10.1); Carbon Dioxide 23.6 meq/L (21.0-32.0); Chloride 109 meq/L (98-107); Glomerular Filtration Rate Greater Than 89 mL/min (>89); Glucose,Random 82 mg/dL (74-106); Sodium 142 meq/L (136-145)
[2018-08-01] MEDS ORDERED: Morphine Inj 4 MG/ML Vial IV.PUSH ONE ×2 (08:35→11:30)
--- NOTE | 2018-08-01 08:52 | CT ---
EXAM DATE: 08/01/2018 8:28 AM EDT AGE/SEX: 23 years / Male INDICATIONS: Wound on right buttock for two weeks. CLINICAL DATA: This is the patient's initial encounter. Patient reports that signs and symptoms have been present for 2 weeks and indicates a pain score of 8/10. MEDICAL/SURGICAL HISTORY: Crohn's disease. Gastroesophageal reflux disease. Tonsillectomy. Par tial colectomy. ORAL CONTRAST: No oral contrast ingested. RADIATION DOSE: 6.64 CTDI (mGy) COMPARISON: [facility] [place], CT ABDOMEN & PELVIS W CONTRAST, 07/12/2018. . TECHNIQUE: Multiple contiguous axial images were obtained through the abdomen and pelvis following b olus infusion of 75 ml Omnipaque 350 (iohexol) nonionic water-soluble contrast as a single exam dos e. No oral contrast ingested. Using automated exposure control and adjustment of the mA and/or kV ac cording to patient size, radiation dose was kept as low as reasonably achievable to obtain optimal di agnostic quality images. DICOM format image data is available electronically for review and comparis on. FINDINGS: Examination of the lung bases demonstrates no abnormality. No pleural fluid is identified. No pulmona ry nodules are present. The liver and spleen are free of focal defects. The gallbladder and pancreas demonstrate no abnormality. The adrenal glands are normal. The kidneys demonstrate no evidence of linda id renal mass or hydronephrosis. No free fluid or abdominal masses are identified. No para-aortic carter nopathy is seen. There is abnormal thickening of the small bowel at the level of the ileocolic anasto mosis. No abscess is identified in this location. There are fluid levels in the small bowel character istic of ileus. Low in the pelvis surrounding the rectum there is abnormal fluid and gas collection extending into th e perineum anterior to the sacrum which may reflect abscess or fistula. This is circumferential surro unding the rectum. The fat and ischiorectal fossa is maintained. CONCLUSION: Findings of fistula or abscess surrounding the rectum as described above. Findings of ileus with abnormal thickening of the distal small bowel characteristic of active inflamm atory process in Crohn's disease Electronically signed by: Julián Reyna MD 08/01/2018 8:51 AM EDT
[2018-08-01] MEDS ORDERED: KCL 20 mEq/D5W/NaCl 0.45% Inj 1,000 ML IV.CONT SCH (11:30)
[2018-08-01] MEDS: Morphine Inj 4 MG/ML Vial IV.PUSH PRN (14:36)
[2018-08-01] MEDS ORDERED: Ketamine Inj 50 MG/5 ML Syringe IV.PUSH ONE (17:01)
[2018-08-01] MEDS ORDERED: Esmolol Bolus Inj 100 MG/10 ML Vial IV.PUSH ONE (17:15)
[2018-08-01] MEDS ORDERED: Glycopyrrolate Inj 1 MG/5 ML Syringe IV.PUSH ONE (17:15)
[2018-08-01] MEDS ORDERED: Lidocaine PF 1% Inj 5 ML Syringe INFILTRATN ONE (17:15)
[2018-08-01] MEDS ORDERED: Potassium Chlor 40 mEq Premix 40 MEQ/100 ML PIGGYBACK IV.SIG PRN (17:59)
[2018-08-01] MEDS ORDERED: Acetaminophen 325 MG Tablet PO PRN (17:59)
[2018-08-01] MEDS ORDERED: Potassium Chlor 20 mEq Premix 20 MEQ/100 ML PIGGYBACK IV.SIG PRN (17:59)
[2018-08-01] MEDS ORDERED: Naloxone Inj 0.4 MG/ML Vial IV.PUSH PRN (18:07)
[2018-08-01] MEDS ORDERED: *Meperidine Inj 25 MG/ML Vial PERIprocedural Use ONLY ONE (18:14)
[2018-08-01] MEDS ORDERED: fentaNYL Citrate Inj 100 MCG/2 ML Ampul ONE (18:26)
[2018-08-01] MEDS ORDERED: Morphine Inj 4 MG/ML Vial ONE (18:27)
[2018-08-01] MEDS ORDERED: Morphine Inj 30 MG/30 ML PCA.VIAL PCA ONE (18:32)
[2018-08-01] MEDS: KCL 20 mEq/D5W/NaCl 0.9% Inj 1,000 ML IV.CONT SCH (18:41)
[2018-08-01] MEDS: Morphine Inj 30 MG/30 ML PCA.VIAL PCA PRN (18:43)
[2018-08-01] MEDS: Ketorolac Inj 30 MG/ML (IVP) Vial IV.PUSH PRN (18:44)
[2018-08-01] MEDS: LORazepam 1 MG Tablet PO PRN (19:47)
--- NOTE | 2018-08-01 23:12 | MH ---
cc: Andrew Marc MD, Andrew H MD DATE OF ADMISSION: 08/01/2018 ADMITTING DIAGNOSIS: History of Crohn disease. Recurrent ischiorectal abscess. HISTORY OF PRESENT ILLNESS: Mr. Huang is a 23-year-old male with a past history of Crohn disease, seen recently for a complex ischiorectal abscess. He was taken to the operating room on 07/17/2018, at which point he underwent colonoscopy and exam under anesthesia with drainage of a complex ischiorectal horseshoe abscess. The patient did well postoperatively, being seen in the office as an outpatient and doing well. Last several days, he probably has not been packing the abscess cavity deep enough and has noted increasing amounts of pain and tenderness on the right side of his anal canal. Denies any fever, but has had some recurrent urinary tract hesitancy and pain on his right leg. The patient was brought to the hospital and seen in the emergency room for evaluation. He was determined to have probable recurrence of the ischiorectal abscess on the right side of his canal. He was therefore admitted for additional exam under anesthesia and irrigation and debridement of the rectal fistula/abscess. Please see previous hospitalizations for past medical and surgical history. PERTINENT PHYSICAL EXAMINATION: GENERAL: Very pleasant, thin male in some distress. HEENT: Remarkable for dry, but pink membranes. Nonicteric sclerae. NECK: Supple without gross adenopathy. CHEST: Relatively clear, symmetrical expanding. HEART: Regular rhythm. ABDOMEN: Soft and doughy. Some tympany. No rebound or guarding any masses noted. RECTAL: Anal inspection reveals previously opened area on the left side of the ischiorectal space, clean and granulating. No signs of cellulitis. There is some tenderness on the right side, but the ischiorectal space was surprisingly soft and not particularly indurated or cellulitic. EXTREMITIES: No cyanosis or clubbing and minimal pedal edema. IMPRESSION: A 23-year-old male with history of Crohn disease, who appears to have recurrence of a fluid collection on the right side of his anal canal, probably due to closure of the fistulous tract with outpatient packing. Risks, benefits and alternatives to exam under anesthesia and an additional drainage procedure was discussed at length with the patient. He will be set up for surgery later this afternoon. MD PAULETTE Magaña/glenda , 10:30 PM , 10:38 PM
[2018-08-02] MEDS: Ketorolac Inj 30 MG/ML (IVP) Vial IV.PUSH PRN ×3 (02:37→17:22)
[2018-08-02] MEDS: KCL 20 mEq/D5W/NaCl 0.9% Inj 1,000 ML IV.CONT SCH ×2 (05:40→19:58)
[2018-08-02 07:15] LABS: Baso # (Auto) 0.1 th/mm3 (0.0-0.2); Baso % (Auto) 0.5 % (0.0-2.0); Eos # (Auto) 0.1 th/mm3 (0.0-0.4); Eos % (Auto) 1.1 % (0.0-4.0); Hematocrit 38.4 % (39.0-51.0); Hemoglobin 12.7 gm/dL (13.0-17.0); Lymph # (Auto) 1.9 th/mm3 (1.0-4.8); Lymph % (Auto) 15.3 % (9.0-44.0); Mean Corpuscular HGB Conc 33.2 % (32.0-36.0); Mean Corpuscular Hemoglobin 31.1 pg (27.0-34.0); Mean Corpuscular Volume 93.8 fL (80.0-100.0); Mean Platelet Volume 6.2 fL (7.0-11.0); Mono # (Auto) 1.1 th/mm3 (0.0-0.9); Mono % (Auto) 9.2 % (0.0-8.0); Neut # (Auto) 9.1 th/mm3 (1.8-7.7); Neut % (Auto) 73.9 % (16.0-70.0); Platelet Count 320 th/mm3 (150-450); Red Blood Count 4.09 mil/mm3 (4.50-5.90); Red Cell Distribution Width 14.2 % (11.6-17.2); White Blood Count 12.4 th/mm3 (4.0-11.0)
[2018-08-02 07:37] LABS: Anion Gap 8 meq/L (5-15); Blood Urea Nitrogen 9 mg/dL (7-18); Calcium 8.2 mg/dL (8.5-10.1); Carbon Dioxide 29.2 meq/L (21.0-32.0); Chloride 108 meq/L (98-107); Glomerular Filtration Rate Greater Than 89 mL/min (>89); Glucose,Random 98 mg/dL (74-106); Potassium 3.6 meq/L (3.5-5.1); Sodium 145 meq/L (136-145)
[2018-08-02] MEDS: Pantoprazole Inj 40 MG Vial IV.PUSH SCH (09:43)
[2018-08-02] MEDS: LORazepam 1 MG Tablet PO PRN ×2 (09:50→21:51)
--- NOTE | 2018-08-02 10:49 | P.PNCS ---
Subjective Colorectal Surgery Post Op Day #: 1 Interval history: C/O less pain. Pain on removing packing however. [place] intact. Hungry. Wants ford out Objective Result Diagrams: 08/02/18 06:49 08/02/18 06:49 Objective Remarks: Perineal wound clean. Packing out. Assessment and Plan - Plan Shower head irrigations after BMs and BID D/C ford Regular diet
[2018-08-02] MEDS: Morphine Inj 30 MG/30 ML PCA.VIAL PCA PRN (13:20)
[2018-08-03] MEDS: Ketorolac Inj 30 MG/ML (IVP) Vial IV.PUSH PRN ×3 (01:10→16:42)
[2018-08-03] MEDS: Morphine Inj 30 MG/30 ML PCA.VIAL PCA PRN (01:42)
[2018-08-03 07:30] LABS: Baso # (Auto) 0.1 th/mm3 (0.0-0.2); Baso % (Auto) 0.5 % (0.0-2.0); Eos # (Auto) 0.1 th/mm3 (0.0-0.4); Hemoglobin 12.2 gm/dL (13.0-17.0); Lymph # (Auto) 2.3 th/mm3 (1.0-4.8); Lymph % (Auto) 18.1 % (9.0-44.0); Mean Corpuscular HGB Conc 33.8 % (32.0-36.0); Mean Corpuscular Hemoglobin 31.2 pg (27.0-34.0); Mean Corpuscular Volume 92.1 fL (80.0-100.0); Mean Platelet Volume 6.5 fL (7.0-11.0); Mono # (Auto) 1.5 th/mm3 (0.0-0.9); Mono % (Auto) 11.9 % (0.0-8.0); Neut # (Auto) 8.6 th/mm3 (1.8-7.7); Neut % (Auto) 68.5 % (16.0-70.0); Platelet Count 289 th/mm3 (150-450); Red Blood Count 3.91 mil/mm3 (4.50-5.90); Red Cell Distribution Width 13.9 % (11.6-17.2); White Blood Count 12.5 th/mm3 (4.0-11.0)
[2018-08-03 07:46] LABS: Anion Gap 10 meq/L (5-15); Blood Urea Nitrogen 9 mg/dL (7-18); Calcium 8.2 mg/dL (8.5-10.1); Carbon Dioxide 26.3 meq/L (21.0-32.0); Chloride 108 meq/L (98-107); Glomerular Filtration Rate Greater Than 89 mL/min (>89); Glucose,Random 90 mg/dL (74-106); Potassium 3.4 meq/L (3.5-5.1); Sodium 144 meq/L (136-145)
[2018-08-03] MEDS: Pantoprazole Inj 40 MG Vial IV.PUSH SCH (08:59)
[2018-08-03] MEDS: LORazepam 1 MG Tablet PO PRN (09:05)
--- NOTE | 2018-08-03 11:02 | P.PNCS ---
Subjective Colorectal Surgery Post Op Day #: 2 Interval history: Large bleeding yesterday after packing removed. Eventually stopped. Repacked by RNs this AM. Wants to go home soon. Objective Result Diagrams: 08/03/18 06:42 08/03/18 06:42 Objective Remarks: Wound not inspected today.Bleeding stopped. Just repacked by nursing Assessment and Plan - Plan Shower head irrigations after BMs and BID Regular diet Possible D/C tomorrow D/C FUR BUYER and IVs
[2018-08-03] MEDS: Morphine Inj 4 MG/ML Vial IV.PUSH PRN (13:13)
[2018-08-03] MEDS: oxyCODONE/Acetaminophen 10/325 Tablet PO PRN (21:06)
[2018-08-04 00:25] VITALS: TEMP 98.2
[2018-08-04] MEDS: oxyCODONE/Acetaminophen 10/325 Tablet PO PRN ×3 (01:38→09:31)
[2018-08-04 08:19] VITALS: BP 118/65; PULSE 105; RESP 19; O2SAT 98
--- NOTE | 2018-08-04 09:13 | P.PNCS ---
Subjective Colorectal Surgery Post Op Day #: 3 Interval history: afebrile, VSS UO good voiding Objective Result Diagrams: 08/03/18 06:42 08/03/18 06:42 Objective Remarks: PE alert Rectal - clean external wound darian DC'd still draining Assessment and Plan - Plan Shower head irrigations after BMs and BID Regular diet Possible D/C RTO 1 week
[2018-08-04] MEDS: Pantoprazole Inj 40 MG Vial IV.PUSH SCH (09:31)
--- NOTE | 2018-08-06 09:24 | MP ---
cc: Andrew Marc MD DATE OF OPERATION: 08/01/2018 PREOPERATIVE DIAGNOSES: 1. History of Crohn disease. 2. Rectal abscess. PROCEDURE PERFORMED: Exam under anesthesia with drainage of a complex ischiorectal abscess. POSTOPERATIVE DIAGNOSES: 1. History of Crohn disease. 2. Rectal abscess. SURGEON: Andrew Marc MD. DESCRIPTION OF PROCEDURE: The patient was placed in the left lateral decubitus position. After adequate anesthesia and sedation, his buttocks were taped apart, prepped with Betadine solution and draped in the usual sterile fashion. Initially, the anal canal was gently dilated and a half doty retractor inserted. Examination revealed the previous drainage site in the left lateral position to be granulating. There was no remaining opening or tract, which had been present previously. With digital pressure, the ischiorectal space was reopened toward the posterior midline. At this point, it became evident that there was a crypt in the posterior midline which was draining purulent fluid. A Shy clamp was placed into the crypt and a large amount of pus was expressed from the cavity, which appeared to extend into the right intersphincteric plane. Due to its connection to the postanal space, this was opened along the midline, entering a fairly large cavity which extended up the right side of the anal canal and into the intersphincteric plane. This cavity was unroofed and irrigated clear. Hemostasis was achieved. Further sinus tracts were not identified and no further fluid collections were evident. Due to the complex nature of the abscess, a Kev drain was placed through the previous drainage site in the left lateral quadrant and secured with a silk tie. The large cavity was loosely packed with Kerlix dressing and a large Fluff dressing placed externally. The patient tolerated the procedure quite well and was brought to the recovery room in stable condition. The sponge and needle counts were correct at the end of the procedure. Andrew Marc MD [facility]/rs , 08:44 AM , 08:52 AM
--- NOTE | 2018-09-02 10:46 | MD ---
cc: Andrew Marc MD DATE OF DISCHARGE: 08/04/2018 ADMITTING DIAGNOSES: 1. History of Crohn disease. 2. History of rectal abscess and fistula. PROCEDURES: On 08/01/2018, an exam under anesthesia with drainage of complex ischiorectal abscess. DISCHARGE DIAGNOSES: 1. History of Crohn disease. 2. Complex ischiorectal abscess. HISTORY OF PRESENT ILLNESS: Mr. Huang is a 23-year-old male with a past history of Crohn disease seen recently for a complex ischiorectal abscess. He was taken to the operating room on 07/17/2018, at which point underwent colonoscopy and exam under anesthesia with drainage of a complex ischiorectal horseshoe abscess. He did well postoperatively, being seen in the office as an outpatient and doing well. The last several days, he probably has not been packing the abscess cavity deeply enough and noted increasing amounts of pain and tenderness on the right side of his anal canal. Denied fever, but had some recurrent urinary tract hesitancy and pain in his right leg. The patient was brought to the hospital and seen in the emergency department. It was determined he had a probable recurrence of his ischiorectal abscess on the right side of his canal. The patient was, therefore, admitted for additional exam under anesthesia, irrigation and debridement of the rectal fistula and abscess. Please see previous hospitalization for past medical and surgical history. PERTINENT PHYSICAL: GENERAL: Very pleasant, thin male in mild distress. ABDOMEN: Very soft and flat. No distention. A little doughy but no rebound, guarding, or masses. RECTAL: Anal inspection revealed previously opened area on the left side of the ischiorectal space was clean and granulating. No sign of cellulitis. Some tenderness on the right side, but ischiorectal space was surprisingly soft and not particularly indurated or cellulitic. HOSPITAL COURSE: After admission, the patient was taken to the operating room on 08/01/2018, at which point he underwent exam under anesthesia and drainage of a complex ischiorectal abscess. He did have a Kev drain placed and packing of the complex abscess cavity. Postoperatively, he felt quite a bit better. The packing was removed and he was able to irrigate the wounds with the help of the nursing staff. Poon catheter was taken out. He was able to shower and pass urine without a problem. He continued to require fairly high doses of pain medication. The patient was eating well enough. Wounds had a stabilized to enable just wet-to-dry dressings and shower irrigations which he could do at home. Assistance with home health was also attempted. The patient was doing well enough to consider ready for discharge home on 08/04/2018. DISCHARGE INSTRUCTIONS: He was discharged on a regular diet. He was given pain medication for his postop pain relief. He was encouraged to irrigate and vigorously wash his anal area with a bidet or shower rinse 2-3 times a day, especially after bowel movements. Pack with Kerlix or dry sterile gauze. The patient will be seen in the office in 1 week's time for routine followup. Any problems prior to his scheduled office visit, he was encouraged to call for more urgent attention. Andrew Marc MD [facility]ad[facility] , 05:32 PM , 05:43 PM
== END 2018-08-04 10:39 | disposition home or self-care (01) ==
LOC: NEPE 05:41 → NEDA 05:41 → N07 13:54
PROVIDERS: ADMIT Colon & Rectal Surgery; ATTEND Colon & Rectal Surgery

== ENCOUNTER 2018-09-01 03:25 | Observation (INO) ==
[2018-09-01 04:53] LABS: Baso # (Auto) 0.1 th/mm3 (0.0-0.2); Baso % (Auto) 0.8 % (0.0-2.0); Eos # (Auto) 0.3 th/mm3 (0.0-0.4); Eos % (Auto) 2.6 % (0.0-4.0); Hemoglobin 13.6 gm/dL (13.0-17.0); Mean Corpuscular HGB Conc 34.1 % (32.0-36.0); Mean Corpuscular Hemoglobin 31.9 pg (27.0-34.0); Mean Corpuscular Volume 93.5 fL (80.0-100.0); Mean Platelet Volume 6.4 fL (7.0-11.0); Mono # (Auto) 0.9 th/mm3 (0.0-0.9); Neut # (Auto) 9.2 th/mm3 (1.8-7.7); Neut % (Auto) 67.6 % (16.0-70.0); Platelet Count 293 th/mm3 (150-450); Red Blood Count 4.28 mil/mm3 (4.50-5.90); Red Cell Distribution Width 14.6 % (11.6-17.2); White Blood Count 13.5 th/mm3 (4.0-11.0)
[2018-09-01 05:00] LABS: Alkaline Phosphatase 77 U/L (45-117); Total Protein 6.9 g/dL (6.4-8.2)
[2018-09-01 05:07] LABS: Activated Partial Thrombo Time 26.2 sec (24.3-30.1); INR 1.2 Ratio; Prothrombin Time 11.7 sec (9.8-11.6)
[2018-09-01 05:08] LABS: Alanine Aminotransferase 13 U/L (12-78); Albumin 3.2 g/dL (3.4-5.0); Anion Gap 9 meq/L (5-15); Aspartate Aminotransferase 17 U/L (15-37); Blood Urea Nitrogen 10 mg/dL (7-18); Calcium 8.4 mg/dL (8.5-10.1); Carbon Dioxide 24.1 meq/L (21.0-32.0); Chloride 111 meq/L (98-107); Glomerular Filtration Rate Greater Than 89 mL/min (>89); Glucose,Random 82 mg/dL (74-106); Lipase 454 U/L (73-393); Sodium 144 meq/L (136-145)
[2018-09-01 05:09] LABS: Bilirubin,Urine Negative (Negative); Clarity,Urine Clear (Clear); Color,Urine Yellow (Yellw/Straw); Glucose,Urine (UA) Negative (Negative); Leukocyte Esterase,Urine Negative (Negative); Mucus,Urine Moderate /lpf (Occasional); Nitrite,Urine Negative (Negative); Specific Gravity,Urine 1.023 (1.002-1.035)
[2018-09-01 05:10] LABS: Potassium 3.6 meq/L (3.5-5.1)
[2018-09-01] MEDS ORDERED: Morphine Inj 4 MG/ML Vial IV.PUSH ONE ×2 (05:20→07:26)
--- NOTE | 2018-09-01 05:54 | ED ---
HPI General Chief complaint: Recheck/Abnormal Lab/Rx Stated complaint: Medical Time Seen by Provider: 09/01/18 03:52 Source: patient Limitations: no limitations History of Present Illness HPI narrative: The patient is a 23 year old male who presents to the [facility] emergency department with a history of developing rectal pain associated with right groin pain and pain into the right buttock 3 days ago. He reports that the symptoms are similar to when he had an abscess drained recently by Dr. Marc. He reports that he had surgery with Dr. Marc in July and then again in August. He denies being on any medications for his Crohn's disease. He reports that he has not been on any medication for his Crohn's for the last 3 years. He denies being on any antibiotic after discharge in August. He reports that he had a fever with a T-max of 99.9 at home. He denies having any nausea or vomiting. He reports having frequent bowel movements that are very painful and burn 78 times per day. He denies noting any blood in his stool. He reports that he is incontinent of urine and has been so since his last surgery which she did discuss with Dr. Marc. The patient reports having associated lower abdominal pain and bilateral lower quadrants of the abdomen that he reports is a cramping sensation. On review of systems otherwise, the patient denies having any cough, congestion, neck pain, chest pain, shortness of breath, urinary symptoms, scrotal pain or swelling, or neurologic symptoms. Related Data Home Medications Medication Instructions Recorded Confirmed No Known Home Medications 09/01/18 09/01/18 Allergies Allergy/AdvReac Type Severity Reaction Status Date / Time adhesive Allergy Severe Rash Verified 09/01/18 03:27 Review of Systems ROS: all other systems reviewed are negative [facility] Medical History Medical History GERD (gastroesophageal reflux disease) (Acute) Crohns disease (Acute) Rectal abscess (Acute) Surgical History Surgical History History of partial colectomy (Acute) History of tonsillectomy and adenoidectomy (Acute) History of colostomy reversal (Acute) Family History Family History Other Patient denies significant medical history Social History Social History Substance History: No History of Abuse Second Hand Smoke Exposure: Yes Smoking Status: Current every day smoker Tobacco Type: Cigarettes Packs Per Day: 0.5 Cigarettes Per Day: 10.0 How Often Do You Have a Drink Containing Alcohol: Monthly or less Recent Travel in [facility] within the Last 8 Weeks: No Recent Out of Country Travel within the Last 8 Weeks: No Immunization History Tetanus Immunization: Unsure Hx Influenza Vaccine This Season: No Exam Const General: cooperative, well developed and acute distress (Related to rectal discomfort.) mild Nutritional Appearance: well nourished Orientation: alert, awake and oriented x3 HENMT Head: normocephalic and atraumatic Nose: no nasal discharge and no epistaxis Mouth: moist mucous membranes Throat: posterior oropharynx normal and uvula midline Eyes Sclera: normal sclerae Pupils: PERRL Neck Neck: no meningeal signs, trachea midline and no JVD Resp Effort & Inspection: no use of accessory muscles Auscultation: clear to auscultation bilaterally Cardio Rate: tachycardic (Sinus tachycardia in the low 100s. No pulse deficits to the extremities on simultaneous auscultation and palpation of his radial pulse.) Rhythm: regular rhythm Heart Sounds: no gallops, no murmurs and no rubs GI Inspection: non-distended Palpation: soft, no hepatosplenomegaly and tender in the LLQ and in the RLQ; not in the LUQ, not in the RUQ, not at McBurney's point, not periumbilically, not suprapubicly, Tobar's sign negative and with no rebound tenderness Auscultation: normal bowel sounds Rectal Exam: heme negative stool and other Penis: normal penis, not edematous and not erythematous Scrotum: scrotum normal, not edematous, not erythematous, no masses and no scrotal swelling Testes: normal, no testicular mass and no testicular tenderness Back/Spine/Pelvis Back: no CVA tenderness Skin General: dry skin (warm) Neuro General: alert, awake, oriented x3 and other (Grossly nonfocal.) Speech: speech normal Motor: no movement abnormalities noted Extrem General: normal to inspection, no clubbing, no cyanosis and no edema Right lower extremity: hip/thigh (The patient reports tenderness on palpation of the right buttock and posterior aspect of the thigh. There is no erythema, ecchymosis, crepitus, or visual abnormality noted.) Psych Mood: congruent mood Affect: normal affect Judgment: judgment good Course Consultations Consultation #1: The patient's case including history, pertinent physical examination findings, and laboratory studies were discussed with Dr. Abraham. As he reports that at [address] Marc will be coming on shift, he is going to call Dr. Marc now and have him call the emergency department to discuss the patient's case further with me. Time: 06:41 Consultation #2: The patient's case including history, pertinent physical examination findings, and laboratory studies were discussed with Dr. Marc. It was agreed that the patient would be admitted to the hospitalist service. Initial Documented Vital Signs Temperature 97.5 F L 09/01/18 03:28 Pulse Rate 101 H 09/01/18 03:28 Respiratory Rate 18 09/01/18 03:28 Blood Pressure 128/71 09/01/18 03:28 Pulse Oximetry 99 09/01/18 03:28 Last Documented Vital Signs Temperature 97.5 F L 09/01/18 03:28 Pulse Rate 79 09/01/18 07:11 Respiratory Rate 16 09/01/18 07:11 Blood Pressure 134/56 L 09/01/18 07:11 Pulse Oximetry 98 09/01/18 07:11 Medical Decision Making MDM Narrative Medical decision making narrative: During the course of the patient's emergency department visit, the patient's history, examination, and differential diagnosis were reviewed with the patient. The patient was placed on a steam train driver with oximetry and frequent blood pressure monitoring. The patient had IV access obtained and blood work sent for analysis. Diagnostic evaluation was started regarding the patient's abdominal pain, rectal pain, pain in the right buttock. The patient was initially provided normal saline 1 L IV fluid bolus, morphine for pain, Zofran for nausea. The patient was started on broad-spectrum antibiotic to include Zosyn and vancomycin after blood cultures x2 were drawn. The patient's diagnostic studies are remarkable for a white count of 13.5, hemoglobin 13.6, platelets 293, normal differential PT 11.7, PTT 26.2, chemistries remarkable for a chloride of 111, calcium 8.4, albumin 3.2. Lipase is elevated at 454, lactic acid 1.4, urinalysis reveals trace ketones 2 urobilinogen, moderate mucus, CT scan of the abdomen and pelvis shows nearly resolved perirectal inflammation and surrounding abscess/fistula, circumferential abnormal wall thickening of multiple ileal bowel loops consistent with Crohn's involvement without evidence for obstruction. A call was placed out to the patient's colorectal surgeon. I did speak to Dr. Marc. He requested that the patient be admitted to the hospitalist service with a consultation to him and GI. The patient's results were discussed with the patient, including the plan of care. I explained that further testing and/ or monitoring is indicated based on the patient's history, examination, and/ or laboratory findings. Therefore, I recommended admission for additional evaluation. The patient expressed understanding and was agreeable with this plan. The patient was admitted to the hospital in stable condition and sent to a bed under the care of the hospitalist 's service. Medical Screen Exam Complete: Yes Emergency Medical Condition: Yes Differential Diagnosis Differential Diagnosis: Crohn's exacerbation, versus perirectal abscess, versus fistula, versus Radha's gangrene Medical Records Medical records reviewed: Yes I reviewed the patient's medical records. Lab Data Lab results reviewed: Yes I reviewed the patient's lab results. Result diagrams: 09/01/18 04:20 09/01/18 04:20 Lab Results 09/01/18 09/01/18 09/01/18 Range/Units 04:20 04:20 04:20 WBC 13.5 H (4.0-11.0) th/mm3 RBC 4.28 L (4.50-5.90) mil/mm3 Hgb 13.6 (13.0-17.0) gm/dL Hct 40.0 (39.0-51.0) % MCV 93.5 (80.0-100.0) fL MCH 31.9 (27.0-34.0) pg MCHC 34.1 (32.0-36.0) % RDW 14.6 (11.6-17.2) % Plt Count 293 (150-450) th/mm3 MPV 6.4 L (7.0-11.0) fL Neut % (Auto) 67.6 (16.0-70.0) % Lymph % (Auto) 22.0 (9.0-44.0) % Johnson % (Auto) 7.0 (0.0-8.0) % Eos % (Auto) 2.6 (0.0-4.0) % Baso % (Auto) 0.8 (0.0-2.0) % Neut # (Auto) 9.2 H (1.8-7.7) th/mm3 Lymph # (Auto) 3.0 (1.0-4.8) th/mm3 Johnson # (Auto) 0.9 (0.0-0.9) th/mm3 Eos # (Auto) 0.3 (0.0-0.4) th/mm3 Baso # (Auto) 0.1 (0.0-0.2) th/mm3 WBC Differential . Differential Comment Auto diff final PT 11.7 H (9.8-11.6) sec INR 1.2 Ratio APTT 26.2 (24.3-30.1) sec Sodium 144 (136-145) meq/L Potassium 3.6 (3.5-5.1) meq/L Chloride 111 H (98-107) meq/L Carbon Dioxide 24.1 (21.0-32.0) meq/L Anion Gap 9 (5-15) meq/L BUN 10 (7-18) mg/dL Creatinine 0.97 (0.60-1.30) mg/dL Estimated GFR Greater than 89 (>89) mL/min Random Glucose 82 (74-106) mg/dL Lactic Acid (0.4-2.0) mmol/L Calcium 8.4 L (8.5-10.1) mg/dL Total Bilirubin 0.6 (0.2-1.0) mg/dL AST 17 (15-37) U/L ALT 13 (12-78) U/L Alkaline Phosphatase 77 (45-117) U/L Total Protein 6.9 (6.4-8.2) g/dL Albumin 3.2 L (3.4-5.0) g/dL Lipase 454 H (73-393) U/L Urine Color (Yellw/Straw) Urine Clarity (Clear) Urine pH (5.0-8.5) Ur Specific [place] (1.002-1.035) Urine Protein (Neg-Trace) mg/dL Urine Glucose (UA) (Negative) mg/dL Urine Ketones (Negative) mg/dL Urine Occult Blood (Negative) Urine Nitrate (Negative) Urine Bilirubin (Negative) Urine Urobilinogen (Less than 2) mg/dL Ur Leukocyte Esterase (Negative) Urine RBC (0-3) /hpf Urine WBC (0-5) /hpf Urine Mucus (Occasional) /lpf Micro UA Comment Ur Microscopic Review Urine Culture Comments 09/01/18 09/01/18 Range/Units 04:20 04:45 WBC (4.0-11.0) th/mm3 RBC (4.50-5.90) mil/mm3 Hgb (13.0-17.0) gm/dL Hct (39.0-51.0) % MCV (80.0-100.0) fL MCH (27.0-34.0) pg MCHC (32.0-36.0) % RDW (11.6-17.2) % Plt Count (150-450) th/mm3 MPV (7.0-11.0) fL Neut % (Auto) (16.0-70.0) % Lymph % (Auto) (9.0-44.0) % Johnson % (Auto) (0.0-8.0) % Eos % (Auto) (0.0-4.0) % Baso % (Auto) (0.0-2.0) % Neut # (Auto) (1.8-7.7) th/mm3 Lymph # (Auto) (1.0-4.8) th/mm3 Johnson # (Auto) (0.0-0.9) th/mm3 Eos # (Auto) (0.0-0.4) th/mm3 Baso # (Auto) (0.0-0.2) th/mm3 WBC Differential Differential Comment PT (9.8-11.6) sec INR Ratio APTT (24.3-30.1) sec Sodium (136-145) meq/L Potassium (3.5-5.1) meq/L Chloride (98-107) meq/L Carbon Dioxide (21.0-32.0) meq/L Anion Gap (5-15) meq/L BUN (7-18) mg/dL Creatinine (0.60-1.30) mg/dL Estimated GFR (>89) mL/min Random Glucose (74-106) mg/dL Lactic Acid 1.4 (0.4-2.0) mmol/L Calcium (8.5-10.1) mg/dL Total Bilirubin (0.2-1.0) mg/dL AST (15-37) U/L ALT (12-78) U/L Alkaline Phosphatase (45-117) U/L Total Protein (6.4-8.2) g/dL Albumin (3.4-5.0) g/dL Lipase (73-393) U/L Urine Color Yellow (Yellw/Straw) Urine Clarity Clear (Clear) Urine pH 5.0 (5.0-8.5) Ur Specific [place] 1.023 (1.002-1.035) Urine Protein Negative (Neg-Trace) mg/dL Urine Glucose (UA) Negative (Negative) mg/dL Urine Ketones Trace H (Negative) mg/dL Urine Occult Blood Negative (Negative) Urine Nitrate Negative (Negative) Urine Bilirubin Negative (Negative) Urine Urobilinogen 2.0 H (Less than 2) mg/dL Ur Leukocyte Esterase Negative (Negative) Urine RBC Less than 1 (0-3) /hpf Urine WBC 2 (0-5) /hpf Urine Mucus Moderate H (Occasional) /lpf Micro UA Comment Culture not ind Ur Microscopic Review Not Reportable Urine Culture Comments Culture not ind Imaging Data Radiologist's impression: Abdomen/Pelvis CT 09/01/18 05:20 CONCLUSION: 1. Nearly resolved perirectal inflammation and surrounding abscess/fistula. 2. Circumferential abnormal wall thickening of multiple ileal bowel loops consistent with Crohn's involvement without evidence for obstruction. 3. No intercurrent bowel infarction or perforation or new intra-abdominal abscess. Discharge Plan Discharge Disposition Patient Disposition: 30 Still Patient Discharge Details Diagnosis: Exacerbation of Crohn's disease without complication Physicians Team ED Provider: Chantell Lindsey Primary Care Provider: Primary Care Colleen Ortiz Rxs /Orders / Referrals /Forms Prescriptions: No Action No Known Home Medications RF: 0 Discharge Interventions Interventions: Vital Signs Last Done: 09/01/18 07:11 Status ED Status: With Doctor
--- NOTE | 2018-09-01 06:07 | CT ---
EXAM DATE: 09/01/2018 5:24 AM EDT AGE/SEX: 23 years / Male INDICATIONS: Abdomen pain. History of Crohn's disease. CLINICAL DATA: This is the patient's initial encounter. Patient reports that signs and symptoms have been present for 1 day and indicates a pain score of 7/10. MEDICAL/SURGICAL HISTORY: Crohn's disease. Gastroesophageal reflux disease. Colon resection. ORAL CONTRAST: No oral contrast ingested. RADIATION DOSE: 6.64 CTDI (mGy) COMPARISON: [facility], CT ABDOMEN & PELVIS W CONTRAST, 08/01/2018. . TECHNIQUE: Multiple contiguous axial images were obtained through the abdomen and pelvis following b olus infusion of 95 ml Omnipaque 350 (iohexol) nonionic water-soluble contrast as a cumulative dose for multiple exams. No oral contrast ingested. Using automated exposure control and adjustment of t mA and/or kV according to patient size, radiation dose was kept as low as reasonably achievable to obtain optimal diagnostic quality images. DICOM format image data is available electronically for r eview and comparison. FINDINGS: LOWER LUNGS: The visualized lower lungs are clear. LIVER: The liver has a homogeneous density without space-occupying lesion. There is no dilation of t he biliary tree. SPLEEN: Homogeneous density without enlargement. PANCREAS: Unremarkable without mass or calcification. KIDNEYS: Kidneys demonstrate symmetrical enhancement and are symmetrical in size without evidence fo r radiopaque renal calculi or hydronephrosis. ADRENAL GLANDS: Unremarkable. AORTA: Haley-aneurysmal. BOWEL/MESENTERY: Improved circumferential rectal wall thickening with significantly improved perirec pati fluid collection and near resolution of air within the collection. Postsurgical features of parti al right hemicolectomy. Mild circumferential wall thickening involving multiple loops of ileum in the left abdomen. There is also circumferential wall thickening of the terminal ileum with subtle surrou nding inflammatory stranding. No free fluid or drainable fluid collections in the abdomen. No pneumat osis or free air. ABDOMINAL WALL: Intact. RETROPERITONEUM: No evidence of adenopathy in the retrocrural, para-aortic, or deep pelvic regions. BLADDER: Contours are smooth. REPRODUCTIVE: No abnormal masses or calcifications seen. BONY STRUCTURES: Unremarkable. CONCLUSION: 1. Nearly resolved perirectal inflammation and surrounding abscess/fistula. 2. Circumferential abnormal wall thickening of multiple ileal bowel loops consistent with Crohn's in volvement without evidence for obstruction. 3. No intercurrent bowel infarction or perforation or new intra-abdominal abscess. Electronically signed by: Juan Chowdhury MD 09/01/2018 6:06 AM EDT
[2018-09-01] MEDS ORDERED: Vancomycin Inj 1 GM/200 ML PIGGYBACK IV.SIG ONE (06:14)
[2018-09-01] MEDS ORDERED: Piperacil/Tazo 3.375 GM Premix 50 ML IV.SIG ONE (06:14)
[2018-09-01] MEDS ORDERED: Sod Chloride 0.9% Inj 1,000 ML IV.SIG ONE (06:14)
[2018-09-01] MEDS ORDERED: Vancomycin Inj 1,000 MG in Sodium Chlor 0.9% Inj 250 ML IV.SIG ONE (07:00)
[2018-09-01] MEDS ORDERED: Morphine Inj 4 MG/ML Vial IV.PUSH PRN (09:09)
--- NOTE | 2018-09-01 09:24 | P.HPIM ---
History of Present Illness Primary Care Physician: No Primary Care Physician History of Present Illness: This patient is a 23-year-old male with a known diagnosis of Crohn's disease since the age of 18. Initially after being diagnosed with Crohn's disease the patient had a colostomy for approximately 1 year. He presented to our emergency department with complaints of rectal and bilateral lower abdominal pain that is been ongoing for the past few days. He reports that his symptoms are similar to when he had an abscess drained by Dr. Marc approximately a month ago. He has not been on any medications for Crohn's disease for approximately 3 years because of insurance reasons. He is from [place] and had regular follow-up with a GI specialist in [place]. He states that he has been having approximately 7 bowel movements per day however denies seeing blood in his stool. He has been smoking tobacco since the age of 15 and continues to smoke half a pack per day. He also reports subjective fevers. He denies having any chest pain, no cough, no shortness of breath, no urinary symptoms. He does not have any other complaints. Inpatient Certification: I certify that the inpatient services were ordered in accordance with Medicare regulations governing the order. This includes certification that hospital inpatient services are reasonable and necessary and in the case of services not specified as inpatient-only under 42 CFR 419.22(n), that they are appropriately provided as inpatient services in accordance to with the 2-midnight benchmark under 43 CFR 412.3(e) Review of Systems All other systems reviewed negative except as stated in HPI PMFSH - History History Provided By: Patient - Medical History Medical History: Medical History (Last Reviewed 09/01/18 @ 09:22 by Hannah De Guzman MD) GERD (gastroesophageal reflux disease) (Acute) Crohns disease (Acute) Rectal abscess (Acute) - Surgical History Surgical History: Surgical History (Last Reviewed 09/01/18 @ 09:22 by Hannah De Guzman MD) History of partial colectomy (Acute) History of tonsillectomy and adenoidectomy (Acute) History of colostomy reversal - Family History Family History: Family History (Last Reviewed 09/01/18 @ 05:52 by Chantell Lindsey MD) Other Patient denies significant medical history - Tobacco History Second Hand Smoke Exposure: Yes Tobacco Use In Past 30 Days: Yes Smoking Status: Current every day smoker Tobacco Type: Cigarettes Packs Per Day: 0.5 - Alcohol History How Often Do You Have a Drink Containing Alcohol: Monthly or less - Substance Use History Substance History: No History of Abuse - Travel History Recent Travel in the [place] Within the Last 8 Weeks: No Recent Travel Out of the Country Within the Last 8 Weeks: No - Immunization History Tetanus Immunization: Unsure Hx Influenza Vaccine This Season: No Medications and Allergies Active Medications: Active Medications Piperacillin/Tazobactam/Dextrose (Zosyn 3.375 Gm Premix) 50 mls @ 100 mls/hr IV.SIG Q6H TAN Sodium Chloride (1/2 Normal Saline Inj) 1,000 mls @ 125 mls/hr IV.CONT .Q8H TAN Morphine Sulfate (Morphine Inj) 2 mg IV.PUSH Q6H PRN PRN Reason: PAIN SCALE 6 TO 10 Allergies Allergy/AdvReac Type Severity Reaction Status Date / Time adhesive Allergy Severe Rash Verified 09/01/18 03:27 Home Medications Medication Instructions Recorded Confirmed Type No Known Home Medications 09/01/18 09/01/18 History Exam Vital signs: Vital Signs 09/01/18 03:28 09/01/18 06:10 09/01/18 06:11 Temperature 97.5 F L Pulse Rate 101 H 74 Respiratory Rate 18 16 16 Blood Pressure 128/71 Pulse Oximetry 99 97 09/01/18 07:11 Temperature Pulse Rate 79 Respiratory Rate 16 Blood Pressure 134/56 L Pulse Oximetry 98 Intake & Output 08/31/18 09/01/18 09/01/18 18:59 06:59 18:59 Intake Total 1300 / 1300 Balance 1300 / 1300 Weight 65.771 kg Intake: IV 1300 / 1300 Zosyn 3.375 GM Premix 50 ML @ 50 / 50 100 mls/hr IV.SIG ONCE ONE Rx#: [id number] NS Inj 1,000 ML @ Wide Open IV. 1000 / 1000 SIG BOLUS ONE Rx#:[id number] Vancomycin Inj 1,000 MG In NS 250 / 250 Inj 250 ML @ 200 mls/hr IV.SIG ONCE ONE Rx#:[id number] Narrative: General patient in no acute distress HEENT extraocular movements are intact, clear oropharyngeal mucosa, no JVD Cardiovascular S1-S2 audible, RRR, no murmurs rubs or gallops Respiratory clear to auscultation bilaterally Abdomen soft, bilateral lower abdominal tenderness on palpation, normal bowel sounds, well-healed vertical scar in the mid abdomen. Extremities no edema 2+ distal pulses in bilateral upper and lower extremities Neuro cranial nerves II through XII intact Results - Labs CBC & Chem 7: 09/01/18 04:20 09/01/18 04:20 Labs: Short CBC 09/01/18 Range/Units 04:20 WBC 13.5 H (4.0-11.0) th/mm3 Hgb 13.6 (13.0-17.0) gm/dL Hct 40.0 (39.0-51.0) % Plt Count 293 (150-450) th/mm3 BMP 09/01/18 04:20 Sodium 144 Potassium 3.6 Chloride 111 H Carbon Dioxide 24.1 BUN 10 Creatinine 0.97 Calcium 8.4 L Liver Function 09/01/18 Range/Units 04:20 Total Bilirubin 0.6 (0.2-1.0) mg/dL AST 17 (15-37) U/L ALT 13 (12-78) U/L Alkaline Phosphatase 77 (45-117) U/L Albumin 3.2 L (3.4-5.0) g/dL Urine 09/01/18 Range/Units 04:45 Urine Color Yellow (Yellw/Straw) Urine Clarity Clear (Clear) Urine pH 5.0 (5.0-8.5) Ur Specific [place] 1.023 (1.002-1.035) Urine Protein Negative (Neg-Trace) mg/dL Urine Glucose (UA) Negative (Negative) mg/dL - Imaging Impressions Abdomen/Pelvis CT 09/01/18 05:20 CONCLUSION: 1. Nearly resolved perirectal inflammation and surrounding abscess/fistula. 2. Circumferential abnormal wall thickening of multiple ileal bowel loops consistent with Crohn's involvement without evidence for obstruction. 3. No intercurrent bowel infarction or perforation or new intra-abdominal abscess. Caprini VTE Risk Assessment Caprini VTE Risk Assessment: No/Low Risk (score <= 1) Caprini Risk Assessment Model: Point Value = 1 Point Value = 2 Point Value = 3 Point Value = 5 Age 41-60 Minor surgery BMI > 25 kg/m2 Swollen legs Varicose veins or History of unexplained or recurrent spontaneous Oral contraceptives or hormone replacement Sepsis (< 1 month) Serious lung disease, including pneumonia (< 1 month) Abnormal pulmonary function Acute myocardial infarction Congestive heart failure (< 1 month) History of inflammatory bowel disease Medical patient at bed rest Age 61-74 Arthroscopic surgery Major open surgery (> 45 min) Laparoscopic surgery (> 45 min) Malignancy Confined to bed (> 72 hours) Immobilizing plaster cast Central venous access Age >= 75 History of VTE Family history of VTE Factor V Leiden Prothrombin [id number] Lupus anticoagulant Anticardiolipin antibodies Elevated serum homocysteine Heparin-induced thrombocytopenia Other congenital or acquired thrombophilia Stroke (< 1 month) Elective arthroplasty Hip, pelvis, or leg fracture Acute spinal cord injury (< 1 month) Prophylaxis Regimen: Total Risk Factor Score Risk Level Prophylaxis Regimen 0-1 Low Early ambulation 2 Moderate Order ONE of the following: *Sequential Compression Device (SCD) *Heparin 5000 units SQ BID 3-4 Higher Order ONE of the following medications: *Heparin 5000 units SQ TID *Enoxaparin/Lovenox 40 mg SQ daily (WT < 150 kg, CrCl > 30 mL/min) *Enoxaparin/Lovenox 30 mg SQ daily (WT < 150 kg, CrCl > 10-29 mL/min) *Enoxaparin/Lovenox 30 mg SQ BID (WT < 150 kg, CrCl > 30 mL/min) AND/OR *Sequential Compression Device (SCD) 5 or more Highest Order ONE of the following medications: *Heparin 5000 units SQ TID (Preferred with Epidurals) *Enoxaparin/Lovenox 40 mg SQ daily (WT < 150 kg, CrCl > 30 mL/min) *Enoxaparin/Lovenox 30 mg SQ daily (WT < 150 kg, CrCl > 10-29 mL/min) *Enoxaparin/Lovenox 30 mg SQ BID (WT < 150 kg, CrCl > 30 mL/min) AND *Sequential Compression Device (SCD) Assessment and Plan - Plan This patient is a 23-year-old male with a known diagnosis of Crohn's disease. He was recently seen by Dr. Marc at our facility and had a darrell-rectal abscess drained. He now presents with complaints of bilateral lower abdominal pain and the cramping-like sensation. He also reports personally 7 bowel movements per day. 1. Crohn's exacerbation CT scan of the abdomen and pelvis shows significant improvement of a previous perirectal abscess that was drained, and other findings consistent with Crohn's disease. The patient will be continued on IV fluids. IV steroids. Continue IV antibiotics. Follow-up blood cultures, and stool culture Lipase was elevated around 450. Continue IV fluids, will follow up a lipase tomorrow. Colorectal surgery consulted to evaluate the patient. GI has also been consulted as the patient has not had any regular follow-up for his Crohn's disease. Patient was counseled extensively on tobacco smoking cessation. No pharmacotherapy for DVT prophylaxis until after the patient is evaluated by colorectal surgery.
[2018-09-01] MEDS: Sodium Chloride 0.45 % Inj 1,000 ML IV.CONT SCH ×2 (10:00→18:01)
--- NOTE | 2018-09-01 12:35 | P.CONGI ---
History of Present Illness Consult date: 09/01/18 Chief complaint: Acute Exacerbation Chron's Disease History of Present Illness: This patient is a 23-year-old male with a known diagnosis of Crohn's disease since the age 18. He is from [place] and recently located to the area. Hasn' t been on tx for the past 3 yrs. Previously was on Remicade and Methotrexate. 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 He presented to emergency department with complaints of rectal and bilateral lower abdominal pain associated with leg pain, intermittent N/V that's been ongoing for the past few days. He reports that his symptoms are similar to when he had an abscess drained by Dr. Marc approximately a month ago. He states that he has been having approximately 7 bowel movements per day which is baseline for pt, denies seeing blood in his stool. Denies alcohol intake but he is every day smoker. Pt had benign colonoscopy on 07/14/18 noting normal mucosa, no obvious cobblestoning or polyps seen, the rectal fault appeared normal with some inflammatory change along the dentate line ave very distal recta mucosa. He also under went I&D fo ischiorectal abscess and posterior fistula. He then under went drainage of a complex ischiorectal abscess on 08/01/18. Abdomen/Pelvis CT 09/01/18 showed Nearly resolved perirectal inflammation and surrounding abscess/fistula. Circumferential abnormal wall thickening of multiple ileal bowel loops consistent with Crohn's involvement without evidence for obstruction. No intercurrent bowel infarction or perforation or new intra-abdominal abscess. <Krista Hobbs - Last Filed: 09/02/18 20:40> Review of Systems All other systems reviewed negative except as stated in HPI <Krista Hobbs - Last Filed: 09/02/18 20:40> [facility] - Medical History Medical History: Medical History (Last Reviewed 09/01/18 @ 09:22 by Hannah De Guzman MD) GERD (gastroesophageal reflux disease) (Acute) Crohns disease (Acute) Rectal abscess (Acute) - Surgical History Surgical History: Surgical History (Last Reviewed 09/01/18 @ 09:22 by Hannah De Guzman MD) History of partial colectomy (Acute) History of tonsillectomy and adenoidectomy (Acute) History of colostomy reversal - Family History Family History: Family History (Last Reviewed 09/01/18 @ 05:52 by Chantell Lindsey MD) Other Patient denies significant medical history <PjDeonte - Last Filed: 09/01/18 22:12> - History History Provided By: Patient - Medical History Medical History: Medical History (Last Reviewed 09/01/18 @ 09:22 by Hannah De Guzman MD) GERD (gastroesophageal reflux disease) (Acute) Crohns disease (Acute) Rectal abscess (Acute) - Surgical History Surgical History: Surgical History (Last Reviewed 09/01/18 @ 09:22 by Hannah De Guzman MD) History of partial colectomy (Acute) History of tonsillectomy and adenoidectomy (Acute) History of colostomy reversal - Family History Family History: Family History (Last Reviewed 09/01/18 @ 05:52 by Chantell Lindsey MD) Other Patient denies significant medical history - Tobacco History Second Hand Smoke Exposure: Yes Tobacco Use In Past 30 Days: Yes (1/2 PACK PER DAY) Smoking Status: Current every day smoker Tobacco Type: Cigarettes Packs Per Day: 0.5 - Alcohol History How Often Do You Have a Drink Containing Alcohol: Never - Substance Use History Substance History: No History of Abuse - Travel History Recent Travel in the [place] Within the Last 8 Weeks: No Recent Travel Out of the Country Within the Last 8 Weeks: No - Immunization History Tetanus Immunization: Unsure Hx Influenza Vaccine This Season: No <Krista Hobbs - Last Filed: 09/02/18 20:40> Medications and Allergies Active Medications: Active Medications Piperacillin/Tazobactam/Dextrose (Zosyn 3.375 Gm Premix) 50 mls @ 100 mls/hr IV.SIG Q6H TAN Last Admin: 09/01/18 20:38 Dose: 100 mls/hr Sodium Chloride (1/2 Normal Saline Inj) 1,000 mls @ 125 mls/hr IV.CONT .Q8H TAN Last Admin: 09/01/18 18:01 Dose: 125 mls/hr Mesalamine (Asacol Hd Dr) 1,600 mg PO TID TAN Last Admin: 09/01/18 17:06 Dose: 1,600 mg Methylprednisolone Sodium Succinate (Solumedrol Inj) 20 mg IV.PUSH Q8HR [facility] Last Admin: 10/01/18 21:22 Dose: 20 mg Morphine Sulfate (Morphine Inj) 2 mg IV.PUSH Q4H PRN PRN Reason: ABDOMINAL PAIN Last Admin: 09/01/18 21:21 Dose: 2 mg Ondansetron HCl (Zofran Inj) 4 mg IV.PUSH Q6H PRN PRN Reason: NAUSEA Last Admin: 09/01/18 18:13 Dose: 4 mg <Deonte Oliva - Last Filed: 09/01/18 22:12> Active Medications: Active Medications Piperacillin/Tazobactam/Dextrose (Zosyn 3.375 Gm Premix) 50 mls @ 100 mls/hr IV.SIG Q6H TAN Sodium Chloride (1/2 Normal Saline Inj) 1,000 mls @ 125 mls/hr IV.CONT .Q8H TAN Last Admin: 09/01/18 10:00 Dose: 125 mls/hr Methylprednisolone Sodium Succinate (Solumedrol Inj) 20 mg IV.PUSH Q8HR TAN Morphine Sulfate (Morphine Inj) 2 mg IV.PUSH Q6H PRN PRN Reason: PAIN SCALE 6 TO 10 <Krista Hobbs - Last Filed: 09/02/18 20:40> Allergies Allergy/AdvReac Type Severity Reaction Status Date / Time adhesive Allergy Severe Rash Verified 09/01/18 03:27 Home Medications Medication Instructions Recorded Confirmed Type oxycodone 10 mg PO Q4-6H PRN 09/02/18 09/02/18 History Exam Vital signs: Vital Signs 09/01/18 03:28 09/01/18 06:10 09/01/18 06:11 Temperature 97.5 F L Pulse Rate 101 H 74 Respiratory Rate 18 16 16 Blood Pressure 128/71 Pulse Oximetry 99 97 09/01/18 07:11 09/01/18 09:38 09/01/18 09:55 Temperature 97.3 F L Pulse Rate 79 67 Respiratory Rate 16 16 18 Blood Pressure 134/56 L 99/58 L Pulse Oximetry 98 98 09/01/18 12:00 09/01/18 13:04 09/01/18 16:00 Temperature 97.5 F L 97.7 F Pulse Rate 69 67 Respiratory Rate 18 17 18 Blood Pressure 116/72 108/59 L Pulse Oximetry 98 98 09/01/18 17:08 Temperature Pulse Rate Respiratory Rate 17 Blood Pressure Pulse Oximetry Intake & Output 09/01/18 09/01/18 09/02/18 06:59 18:59 06:59 Intake Total 3070 / 3070 Balance 3070 / 3070 Weight 65.771 kg 66.2 kg Intake: IV 2350 / 2350 1/2 Normal Saline Inj 1,000 ML 1000 / 1000 @ 125 mls/hr IV.CONT .Q8H TAN Rx#:[id number] Zosyn 3.375 GM Premix 50 ML @ 100 / 100 100 mls/hr IV.SIG Q6H TAN Rx#: [id number] NS Inj 1,000 ML @ Wide Open IV. 1000 / 1000 SIG BOLUS ONE Rx#:[id number] Vancomycin Inj 1,000 MG In NS 250 / 250 Inj 250 ML @ 200 mls/hr IV.SIG ONCE ONE Rx#:[id number] Oral 720 / 720 Other: # Voids 2 Date of Last Bowel Movement 09/01/18 Weight On Admission 65.77 kg <Deonte Oliva E - Last Filed: 09/01/18 22:12> Vital signs: Vital Signs 09/01/18 03:28 09/01/18 06:10 09/01/18 06:11 Temperature 97.5 F L Pulse Rate 101 H 74 Respiratory Rate 18 16 16 Blood Pressure 128/71 Pulse Oximetry 99 97 09/01/18 07:11 09/01/18 09:38 Temperature Pulse Rate 79 Respiratory Rate 16 16 Blood Pressure 134/56 L Pulse Oximetry 98 Intake & Output 08/31/18 09/01/18 09/01/18 18:59 06:59 18:59 Intake Total 1300 / 1300 Balance 1300 / 1300 Weight 65.771 kg 66.2 kg Intake: IV 1300 / 1300 Zosyn 3.375 GM Premix 50 ML @ 50 / 50 100 mls/hr IV.SIG ONCE ONE Rx#: [id number] NS Inj 1,000 ML @ Wide Open IV. 1000 / 1000 SIG BOLUS ONE Rx#:[id number] Vancomycin Inj 1,000 MG In NS 250 / 250 Inj 250 ML @ 200 mls/hr IV.SIG ONCE ONE Rx#:[id number] Other: Date of Last Bowel Movement 09/01/18 Weight On Admission 65.77 kg - Constitutional no acute distress - Routine HEENT Exam Head: Present: normocephalic - Routine Respiratory Exam Present: CTA bilaterally - Routine Cardiovascular Exam Present: RRR - Routine Abdominal Exam Present: soft, normoactive bowel sounds, tenderness, surgical scars - Routine Skin Exam Present: intact, dry - Routine Neurological Exam Present: alert, oriented X3 <Krista Hobbs - Last Filed: 09/02/18 20:40> Results - Labs CBC & Chem 7: 09/01/18 04:20 09/01/18 04:20 Labs: Laboratory Results - last 24 hr 09/01/18 09/01/18 09/01/18 04:20 04:20 04:20 WBC 13.5 H RBC 4.28 L Hgb 13.6 Hct 40.0 MCV 93.5 MCH 31.9 MCHC 34.1 RDW 14.6 Plt Count 293 MPV 6.4 L Neut % (Auto) 67.6 Lymph % (Auto) 22.0 [place] % (Auto) 7.0 Eos % (Auto) 2.6 Baso % (Auto) 0.8 Neut # (Auto) 9.2 H Lymph # (Auto) 3.0 [place] # (Auto) 0.9 Eos # (Auto) 0.3 Baso # (Auto) 0.1 WBC Differential . Differential Comment Auto diff final ESR PT 11.7 H INR 1.2 APTT 26.2 Sodium 144 Potassium 3.6 Chloride 111 H Carbon Dioxide 24.1 Anion Gap 9 BUN 10 Creatinine 0.97 Estimated GFR Greater than 89 Random Glucose 82 Lactic Acid Calcium 8.4 L Total Bilirubin 0.6 AST 17 ALT 13 Alkaline Phosphatase 77 C-Reactive Protein Total Protein 6.9 Albumin 3.2 L Lipase 454 H Urine Color Urine Clarity Urine pH Ur Specific Arthur Urine Protein Urine Glucose (UA) Urine Ketones Urine Occult Blood Urine Nitrate Urine Bilirubin Urine Urobilinogen Ur Leukocyte Esterase Urine RBC Urine WBC Urine Mucus Micro UA Comment Ur Microscopic Review Urine Culture Comments 09/01/18 09/01/18 09/01/18 04:20 04:45 10:45 WBC RBC Hgb Hct MCV MCH MCHC RDW Plt Count MPV Neut % (Auto) Lymph % (Auto) [place] % (Auto) Eos % (Auto) Baso % (Auto) Neut # (Auto) Lymph # (Auto) [place] # (Auto) Eos # (Auto) Baso # (Auto) WBC Differential Differential Comment ESR 7 PT INR APTT Sodium Potassium Chloride Carbon Dioxide Anion Gap BUN Creatinine Estimated GFR Random Glucose Lactic Acid 1.4 Calcium Total Bilirubin AST ALT Alkaline Phosphatase C-Reactive Protein Total Protein Albumin Lipase Urine Color Yellow Urine Clarity Clear Urine pH 5.0 Ur Specific Arthur 1.023 Urine Protein Negative Urine Glucose (UA) Negative Urine Ketones Trace H Urine Occult Blood Negative Urine Nitrate Negative Urine Bilirubin Negative Urine Urobilinogen 2.0 H Ur Leukocyte Esterase Negative Urine RBC Less than 1 Urine WBC 2 Urine Mucus Moderate H Micro UA Comment Culture not ind Ur Microscopic Review Not Reportable Urine Culture Comments Culture not ind 09/01/18 13:49 WBC RBC Hgb Hct MCV MCH MCHC RDW Plt Count MPV Neut % (Auto) Lymph % (Auto) [place] % (Auto) Eos % (Auto) Baso % (Auto) Neut # (Auto) Lymph # (Auto) [place] # (Auto) Eos # (Auto) Baso # (Auto) WBC Differential Differential Comment ESR PT INR APTT Sodium Potassium Chloride Carbon Dioxide Anion Gap BUN Creatinine Estimated GFR Random Glucose Lactic Acid Calcium Total Bilirubin AST ALT Alkaline Phosphatase C-Reactive Protein 1.47 H Total Protein Albumin Lipase Urine Color Urine Clarity Urine pH Ur Specific Arthur Urine Protein Urine Glucose (UA) Urine Ketones Urine Occult Blood Urine Nitrate Urine Bilirubin Urine Urobilinogen Ur Leukocyte Esterase Urine RBC Urine WBC Urine Mucus Micro UA Comment Ur Microscopic Review Urine Culture Comments - Imaging Impressions Abdomen/Pelvis CT 09/01/18 05:20 CONCLUSION: 1. Nearly resolved perirectal inflammation and surrounding abscess/fistula. 2. Circumferential abnormal wall thickening of multiple ileal bowel loops consistent with Crohn's involvement without evidence for obstruction. 3. No intercurrent bowel infarction or perforation or new intra-abdominal abscess. <Deonte Oliva E - Last Filed: 09/01/18 22:12> - Labs CBC & Chem 7: 09/02/18 03:35 09/02/18 03:35 Labs: Laboratory Results - last 24 hr 09/01/18 09/01/18 09/01/18 04:20 04:20 04:20 WBC 13.5 H RBC 4.28 L Hgb 13.6 Hct 40.0 MCV 93.5 MCH 31.9 MCHC 34.1 RDW 14.6 Plt Count 293 MPV 6.4 L Neut % (Auto) 67.6 Lymph % (Auto) 22.0 [place] % (Auto) 7.0 Eos % (Auto) 2.6 Baso % (Auto) 0.8 Neut # (Auto) 9.2 H Lymph # (Auto) 3.0 [place] # (Auto) 0.9 Eos # (Auto) 0.3 Baso # (Auto) 0.1 WBC Differential . Differential Comment Auto diff final ESR PT 11.7 H INR 1.2 APTT 26.2 Sodium 144 Potassium 3.6 Chloride 111 H Carbon Dioxide 24.1 Anion Gap 9 BUN 10 Creatinine 0.97 Estimated GFR Greater than 89 Random Glucose 82 Lactic Acid Calcium 8.4 L Total Bilirubin 0.6 AST 17 ALT 13 Alkaline Phosphatase 77 Total Protein 6.9 Albumin 3.2 L Lipase 454 H Urine Color Urine Clarity Urine pH Ur Specific Arthur Urine Protein Urine Glucose (UA) Urine Ketones Urine Occult Blood Urine Nitrate Urine Bilirubin Urine Urobilinogen Ur Leukocyte Esterase Urine RBC Urine WBC Urine Mucus Micro UA Comment Ur Microscopic Review Urine Culture Comments 09/01/18 09/01/18 09/01/18 04:20 04:45 10:45 WBC RBC Hgb Hct MCV MCH MCHC RDW Plt Count MPV Neut % (Auto) Lymph % (Auto) [place] % (Auto) Eos % (Auto) Baso % (Auto) Neut # (Auto) Lymph # (Auto) [place] # (Auto) Eos # (Auto) Baso # (Auto) WBC Differential Differential Comment ESR 7 PT INR APTT Sodium Potassium Chloride Carbon Dioxide Anion Gap BUN Creatinine Estimated GFR Random Glucose Lactic Acid 1.4 Calcium Total Bilirubin AST ALT Alkaline Phosphatase Total Protein Albumin Lipase Urine Color Yellow Urine Clarity Clear Urine pH 5.0 Ur Specific Arthur 1.023 Urine Protein Negative Urine Glucose (UA) Negative Urine Ketones Trace H Urine Occult Blood Negative Urine Nitrate Negative Urine Bilirubin Negative Urine Urobilinogen 2.0 H Ur Leukocyte Esterase Negative Urine RBC Less than 1 Urine WBC 2 Urine Mucus Moderate H Micro UA Comment Culture not ind Ur Microscopic Review Not Reportable Urine Culture Comments Culture not ind - Imaging Impressions Abdomen/Pelvis CT 09/01/18 05:20 CONCLUSION: 1. Nearly resolved perirectal inflammation and surrounding abscess/fistula. 2. Circumferential abnormal wall thickening of multiple ileal bowel loops consistent with Crohn's involvement without evidence for obstruction. 3. No intercurrent bowel infarction or perforation or new intra-abdominal abscess. <Krista Hobbs - Last Filed: 09/02/18 20:40> Assessment and Plan - Plan Patient seen and examined Agree with above Continue with current supportive care Monitor labs We will need to start the patient on Biologics once he is discharged We will be rechecking his TB and hepatitis profile as a preliminary step for Biologics <Deonte Oliva - Last Filed: 09/01/18 22:12> - Plan - Crohn flare with abd/rectal pain, N/V- known diagnosis of Crohn's disease since the age 18. 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 Pt had benign colonoscopy on 07/14/18 noting normal mucosa, no obvious cobblestoning or polyps seen, the rectal fault appeared normal with some inflammatory change along the dentate line ave very distal recta mucosa. He also under went I&D fo ischiorectal abscess and posterior fistula. He then under went drainage of a complex ischiorectal abscess on 08/01/18. Abdomen/Pelvis CT 09/01/18 showed Nearly resolved perirectal inflammation and surrounding abscess/fistula. Circumferential abnormal wall thickening of multiple ileal bowel loops consistent with Crohn's involvement without evidence for obstruction. No intercurrent bowel infarction or perforation or new intra-abdominal abscess. - Rectal abscess drained by Dr. Marc on 08/01/18- Ct showed Nearly resolved perirectal inflammation and surrounding abscess/fistula. - Leucocytosis- likely secondary to above - High lipase- no pancreatitis on CT, will monitor Plan: - Clears - Cont. prednisone - Cont. Zosyn - Stools studies - Mesalamine - Sed rate, C-rp - Lipase, cbc in the am - Pt will need to be on tx for Crohn, possibly go back to taking Methotrexate and Remicade, he is very high risk with hx of fistulas, abscesses, and ileocolonic resection - CRS on the case - Monitor labs - supportive care - Pt seen and examined by Dr. Oliva and myself and this note is written on his behalf. <Krista Hobbs - Last Filed: 09/02/18 20:40>
[2018-09-01] MEDS: Morphine Sulfate Inj 2 MG/ML Vial IV.PUSH PRN ×3 (13:02→21:21)
[2018-09-01] MEDS: MethylPREDNISolone Sod Succinate Inj 40 MG/ML Vial IV.PUSH SCH ×2 (13:27→21:22)
[2018-09-01] MEDS: Mesalamine 800 MG Tablet DR PO SCH ×2 (13:27→17:06)
[2018-09-01] MEDS: Piperacil/Tazo 3.375 GM Premix 50 ML IV.SIG SCH ×2 (14:14→20:38)
--- NOTE | 2018-09-01 19:48 | MB ---
cc: Andrew Marc MD DATE: 09/01/2018 REASON FOR CONSULTATION: Crohn disease, abdominal pain, history of complex perirectal abscesses. HISTORY OF PRESENT ILLNESS: Mr. Huang is a 23-year-old male who had Crohn disease diagnosed back around age 18. He did have some bowel resection initially years ago and ended up with an ileostomy and then had the ileostomy closed. The patient had no medical followup for several years and presented a couple of months ago with a chronic perirectal abscess and fistula formation. He underwent drainage on 2 occasions for very deep complex perirectal abscesses and fistulas. His last colonoscopy in July was somewhat suboptimal due to the prep, but he had no gross evidence of Crohn disease up to the area of his anastomosis. The patient had been doing well at home with local care to the perianal tissues. He came to the emergency room today complaining of more abdominal pain that seemed to be crampy in nature. He has been going to bathroom about 5-7 times a day with relatively small stools. Denies any bleeding. No nausea or vomiting. He does not think he had a fever. Denies any real diarrhea or melena. He says his appetite has been good and his weight has been stable. Please see the history and physical and consultations for a more complete past medical and surgical history. PHYSICAL EXAMINATION: GENERAL: A very pleasant, well-developed male in no acute distress. HEENT: Remarkable for dry but pink membranes. Nonicteric sclerae. NECK: Supple without gross adenopathy. LUNGS: Relatively clear. Crackles in the bases. HEART: Regular rhythm. ABDOMEN: Soft and doughy, not distended. Incisions are all well healed. Very little induration or thickening. No masses noted. No tympany. RECTAL: Anal inspection reveals scarring from previous anal surgery. Fairly good active contractions. Digital exam not done due to discomfort and postop pain. EXTREMITIES: No cyanosis or clubbing and minimal pedal edema. LABORATORY STUDIES: White count was 13.5, hemoglobin 13.6. Electrolytes remarkable for a BUN of 10 and creatinine of 0.9. Normal liver function tests. Lipase was 454. C-reactive protein was 1.47. IMAGING STUDIES: CT scan was reviewed showing circumferential wall thickening of multiple ileal bowel loops without obstruction. Perirectal tissues appear to be improved without evidence of surrounding abscess or fistula formation. ASSESSMENT AND PLAN: A 23-year-old male with a history of Crohn disease who seems to have developed some radiographic evidence of recurrence in the small bowel since last CT scans were performed. He has been seen by the GI service and has been started on anti-inflammatories and other Crohn treatment. It might be necessary to consider biologics again. The patient has also said he did real well when he had his ileostomy and would not be adverse to going back to the ileostomy if it would help him with disease control and decrease his systemic signs of the disease. We will see how he does with medical management and then decide what to do surgically if we could improve his quality of life. MD PAULETTE Magaña/roby , 05:04 PM , 05:15 PM
[2018-09-02] MEDS: Morphine Sulfate Inj 2 MG/ML Vial IV.PUSH PRN ×6 (01:39→21:52)
[2018-09-02] MEDS: Sodium Chloride 0.45 % Inj 1,000 ML IV.CONT SCH ×3 (01:40→21:10)
[2018-09-02] MEDS: Piperacil/Tazo 3.375 GM Premix 50 ML IV.SIG SCH ×4 (02:55→21:08)
[2018-09-02 04:28] LABS: Anion Gap 9 meq/L (5-15); Baso % (Auto) 0.2 % (0.0-2.0); Blood Urea Nitrogen 8 mg/dL (7-18); Calcium 8.4 mg/dL (8.5-10.1); Carbon Dioxide 27.1 meq/L (21.0-32.0); Chloride 109 meq/L (98-107); Glomerular Filtration Rate Greater Than 89 mL/min (>89); Glucose,Random 137 mg/dL (74-106); Hematocrit 36.9 % (39.0-51.0); Hemoglobin 12.6 gm/dL (13.0-17.0); Lipase 125 U/L (73-393); Lymph # (Auto) 0.8 th/mm3 (1.0-4.8); Lymph % (Auto) 6.6 % (9.0-44.0); Magnesium 1.9 mg/dL (1.5-2.5); Mean Corpuscular HGB Conc 34.1 % (32.0-36.0); Mean Corpuscular Hemoglobin 31.5 pg (27.0-34.0); Mean Corpuscular Volume 92.5 fL (80.0-100.0); Mean Platelet Volume 6.6 fL (7.0-11.0); Mono # (Auto) 0.1 th/mm3 (0.0-0.9); Neut # (Auto) 11.5 th/mm3 (1.8-7.7); Neut % (Auto) 92.2 % (16.0-70.0); Platelet Count 258 th/mm3 (150-450); Potassium 3.7 meq/L (3.5-5.1); Red Blood Count 3.99 mil/mm3 (4.50-5.90); Red Cell Distribution Width 14.5 % (11.6-17.2); Sodium 145 meq/L (136-145); White Blood Count 12.5 th/mm3 (4.0-11.0)
[2018-09-02 05:33] LABS: Hepatitis A IgM Antibody Nonreactive (Nonreactive)
[2018-09-02 05:34] LABS: Hepatitits B Surface Antigen Nonreactive (Nonreactive)
[2018-09-02] MEDS: MethylPREDNISolone Sod Succinate Inj 40 MG/ML Vial IV.PUSH SCH ×2 (05:44→12:59)
[2018-09-02] MEDS: Mesalamine 800 MG Tablet DR PO SCH ×3 (08:28→17:35)
--- NOTE | 2018-09-02 13:47 | P.PNGI ---
Subjective Interval history: Resting in the bed turned on his left side, states he feels much worse today much more right-sided right lower quadrant pain. States IV pain med helps but ineffective for any long-term. Notes previous incontinent multiple stools but no stools today. Current hemoglobin 12.6 <Makayla Lowry - Last Filed: 09/02/18 15:59> Physical Exam Vital signs: Vital Signs 09/01/18 16:00 09/01/18 17:08 09/01/18 20:00 Temperature 97.7 F 98 F Pulse Rate 67 67 Respiratory Rate 18 17 20 Blood Pressure 108/59 L 114/60 Pulse Oximetry 98 09/02/18 01:46 09/02/18 07:57 09/02/18 12:00 Temperature 97.9 F 98.0 F 97.7 F Pulse Rate 68 67 80 Respiratory Rate 16 17 16 Blood Pressure 103/56 L 114/89 102/53 L Pulse Oximetry 98 98 09/02/18 13:00 09/02/18 13:40 Temperature Pulse Rate Respiratory Rate 17 17 Blood Pressure Pulse Oximetry Intake & Output 09/01/18 09/02/18 09/02/18 18:59 06:59 18:59 Intake Total 3070 / 3070 1100 / 1100 1050 / 1050 Output Total 600 / 600 Balance 3070 / 3070 500 / 500 1050 / 1050 Weight 66.2 kg 66.3 kg Intake: IV 2350 / 2350 1100 / 1100 1050 / 1050 1/2 Normal Saline Inj 1,000 ML 1000 / 1000 1000 / 1000 1000 / 1000 @ 125 mls/hr IV.CONT .Q8H [facility] Rx#:[id number] Zosyn 3.375 GM Premix 50 ML @ 100 / 100 100 / 100 50 / 50 100 mls/hr IV.SIG Q6H [facility] Rx#: [id number] NS Inj 1,000 ML @ Wide Open IV. 1000 / 1000 SIG BOLUS ONE Rx#:[id number] Vancomycin Inj 1,000 MG In NS 250 / 250 Inj 250 ML @ 200 mls/hr IV.SIG ONCE ONE Rx#:[id number] Oral 720 / 720 Output: Urine 600 / 600 Other: # Voids 2 Date of Last Bowel Movement 09/01/18 Weight On Admission 65.77 kg - Constitutional moderate distress, thin, cachectic, cooperative - Routine HEENT Exam Head: Present: normocephalic (Mild anxiety) ENT: Present: mucous membranes dry - Routine Neck Exam Present: supple - Routine Respiratory Exam Present: accessory muscle use (No obvious shortness of breath no wheezing no rhonchi) - Routine Cardiovascular Exam Present: S1, S2 - Routine Abdominal Exam Present: normoactive bowel sounds (Flat, no obvious distention, tender full right lower quadrant), guarding (Mild guarding), wound (Healed midline abdominal incision) <Makayla Lowry M - Last Filed: 09/02/18 15:59> Vital signs: Vital Signs 09/01/18 20:00 09/02/18 01:46 09/02/18 07:57 Temperature 98 F 97.9 F 98.0 F Pulse Rate 67 68 67 Respiratory Rate 20 16 17 Blood Pressure 114/60 103/56 L 114/89 Pulse Oximetry 98 09/02/18 12:00 09/02/18 13:00 09/02/18 13:40 Temperature 97.7 F Pulse Rate 80 Respiratory Rate 16 17 17 Blood Pressure 102/53 L Pulse Oximetry 98 09/02/18 15:41 09/02/18 16:33 09/02/18 17:26 Temperature 97.6 F Pulse Rate 80 Respiratory Rate 16 17 17 Blood Pressure 98/50 L Pulse Oximetry 98 Intake & Output 09/02/18 09/02/18 09/03/18 06:59 18:59 06:59 Intake Total 1100 / 1100 2100 / 2100 Output Total 600 / 600 Balance 500 / 500 2100 / 2100 Weight 66.3 kg Intake: IV 1100 / 1100 1100 / 1100 1/2 Normal Saline Inj 1,000 ML 1000 / 1000 1000 / 1000 @ 125 mls/hr IV.CONT .Q8H [facility] Rx#:[id number] Zosyn 3.375 GM Premix 50 ML @ 100 / 100 100 / 100 100 mls/hr IV.SIG Q6H [facility] Rx#: [id number] Oral 1000 / 1000 Output: Urine 600 / 600 Other: # Voids 3 # Bowel Movements 1 <Deonte Oliva - Last Filed: 09/02/18 19:46> Results - Labs CBC & Chem 7: 09/02/18 03:35 09/02/18 03:35 Laboratory Results - last 24 hr 09/01/18 09/02/18 09/02/18 13:49 01:44 03:35 WBC RBC Hgb Hct MCV MCH MCHC RDW Plt Count MPV Neut % (Auto) Lymph % (Auto) [place] % (Auto) Eos % (Auto) Baso % (Auto) Neut # (Auto) Lymph # (Auto) [place] # (Auto) Eos # (Auto) Baso # (Auto) WBC Differential Differential Comment Sodium 145 Potassium 3.7 Chloride 109 H Carbon Dioxide 27.1 Anion Gap 9 BUN 8 Creatinine 0.86 Estimated GFR Greater than 89 Random Glucose 137 H Calcium 8.4 L Magnesium 1.9 C-Reactive Protein 1.47 H Lipase 125 Stool C.difficile Ag Positive H Stool C.difficile Toxin Negative Stl C.difficile Tox PCR Positive H St C. diff Tox Epid 027 Negative Hepatitis A IgM Ab Hep Bs Antigen Hep B Core IgM Ab Hep C IgG Ab TB (QFT) Gold In Tube TB Test (QFT) Nil TB Test Mitogen - Nil TB Test Antigen - Nil 09/02/18 09/02/18 09/02/18 03:35 03:35 03:35 WBC 12.5 H RBC 3.99 L Hgb 12.6 L Hct 36.9 L MCV 92.5 MCH 31.5 MCHC 34.1 RDW 14.5 Plt Count 258 MPV 6.6 L Neut % (Auto) 92.2 H Lymph % (Auto) 6.6 L [place] % (Auto) 1.0 Eos % (Auto) 0.0 Baso % (Auto) 0.2 Neut # (Auto) 11.5 H Lymph # (Auto) 0.8 L [place] # (Auto) 0.1 Eos # (Auto) 0.0 Baso # (Auto) 0.0 WBC Differential . Differential Comment Auto diff final Sodium Potassium Chloride Carbon Dioxide Anion Gap BUN Creatinine Estimated GFR Random Glucose Calcium Magnesium C-Reactive Protein Lipase Stool C.difficile Ag Stool C.difficile Toxin Stl C.difficile Tox PCR St C. diff Tox Epid 027 Hepatitis A IgM Ab Nonreactive Hep Bs Antigen Nonreactive Hep B Core IgM Ab Nonreactive Hep C IgG Ab Nonreactive TB (QFT) Gold In Tube Cancelled TB Test (QFT) Nil Cancelled TB Test Mitogen - Nil Cancelled TB Test Antigen - Nil Cancelled Microbiology 09/01/18 04:20 Blood - Peripheral Aerobic Blood Culture - Preliminary No growth in 1 day 09/01/18 04:20 Blood - Peripheral Anaerobic Blood Culture - Preliminary No growth in 1 day 09/01/18 04:15 Blood - Peripheral Aerobic Blood Culture - Preliminary No growth in 1 day 09/01/18 04:15 Blood - Peripheral Anaerobic Blood Culture - Preliminary No growth in 1 day 09/02/18 01:44 Stool Stool for WBCs - Final Moderate WBC'S <Makayla Lowry - Last Filed: 09/02/18 15:59> - Labs CBC & Chem 7: 09/02/18 03:35 09/02/18 03:35 Laboratory Results - last 24 hr 09/02/18 09/02/18 09/02/18 01:44 03:35 03:35 WBC 12.5 H RBC 3.99 L Hgb 12.6 L Hct 36.9 L MCV 92.5 MCH 31.5 MCHC 34.1 RDW 14.5 Plt Count 258 MPV 6.6 L Neut % (Auto) 92.2 H Lymph % (Auto) 6.6 L [place] % (Auto) 1.0 Eos % (Auto) 0.0 Baso % (Auto) 0.2 Neut # (Auto) 11.5 H Lymph # (Auto) 0.8 L [place] # (Auto) 0.1 Eos # (Auto) 0.0 Baso # (Auto) 0.0 WBC Differential . Differential Comment Auto diff final ESR Sodium 145 Potassium 3.7 Chloride 109 H Carbon Dioxide 27.1 Anion Gap 9 BUN 8 Creatinine 0.86 Estimated GFR Greater than 89 Random Glucose 137 H Calcium 8.4 L Magnesium 1.9 C-Reactive Protein Lipase 125 Stool C.difficile Ag Positive H Stool C.difficile Toxin Negative Stl C.difficile Tox PCR Positive H St C. diff Tox Epid 027 Negative Hepatitis A IgM Ab Hep Bs Antigen Hep B Core IgM Ab Hep C IgG Ab TB (QFT) Gold In Tube TB Test (QFT) Nil TB Test Mitogen - Nil TB Test Antigen - Nil 09/02/18 09/02/18 09/02/18 03:35 03:35 15:59 WBC RBC Hgb Hct MCV MCH MCHC RDW Plt Count MPV Neut % (Auto) Lymph % (Auto) [place] % (Auto) Eos % (Auto) Baso % (Auto) Neut # (Auto) Lymph # (Auto) [place] # (Auto) Eos # (Auto) Baso # (Auto) WBC Differential Differential Comment ESR 5 Sodium Potassium Chloride Carbon Dioxide Anion Gap BUN Creatinine Estimated GFR Random Glucose Calcium Magnesium C-Reactive Protein Lipase Stool C.difficile Ag Stool C.difficile Toxin Stl C.difficile Tox PCR St C. diff Tox Epid 027 Hepatitis A IgM Ab Nonreactive Hep Bs Antigen Nonreactive Hep B Core IgM Ab Nonreactive Hep C IgG Ab Nonreactive TB (QFT) Gold In Tube Cancelled TB Test (QFT) Nil Cancelled TB Test Mitogen - Nil Cancelled TB Test Antigen - Nil Cancelled 09/02/18 15:59 WBC RBC Hgb Hct MCV MCH MCHC RDW Plt Count MPV Neut % (Auto) Lymph % (Auto) [place] % (Auto) Eos % (Auto) Baso % (Auto) Neut # (Auto) Lymph # (Auto) [place] # (Auto) Eos # (Auto) Baso # (Auto) WBC Differential Differential Comment ESR Sodium Potassium Chloride Carbon Dioxide Anion Gap BUN Creatinine Estimated GFR Random Glucose Calcium Magnesium C-Reactive Protein 1.30 H Lipase Stool C.difficile Ag Stool C.difficile Toxin Stl C.difficile Tox PCR St C. diff Tox Epid 027 Hepatitis A IgM Ab Hep Bs Antigen Hep B Core IgM Ab Hep C IgG Ab TB (QFT) Gold In Tube TB Test (QFT) Nil TB Test Mitogen - Nil TB Test Antigen - Nil Microbiology 09/01/18 04:20 Blood - Peripheral Aerobic Blood Culture - Preliminary No growth in 1 day 09/01/18 04:20 Blood - Peripheral Anaerobic Blood Culture - Preliminary No growth in 1 day 09/01/18 04:15 Blood - Peripheral Aerobic Blood Culture - Preliminary No growth in 1 day 09/01/18 04:15 Blood - Peripheral Anaerobic Blood Culture - Preliminary No growth in 1 day 09/02/18 01:44 Stool Stool for WBCs - Final Moderate WBC'S <Deonte Oliva E - Last Filed: 09/02/18 19:46> Assessment and Plan - Plan Crohn flare with abd/rectal pain, N/V- known diagnosis of Crohn's disease since the age 18. 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 Pt had benign colonoscopy on 07/14/18 noting normal mucosa, no obvious cobblestoning or polyps seen, the rectal fault appeared normal with some inflammatory change along the dentate line ave very distal recta mucosa. He also under went I&D fo ischiorectal abscess and posterior fistula. He then under went drainage of a complex ischiorectal abscess on 08/01/18. Abdomen/Pelvis CT 09/01/18 showed Nearly resolved perirectal inflammation and surrounding abscess/fistula. Circumferential abnormal wall thickening of multiple ileal bowel loops consistent with Crohn's involvement without evidence for obstruction. No intercurrent bowel infarction or perforation or new intra-abdominal abscess. - Rectal abscess drained by Dr. Marc on 08/01/18- Ct showed Nearly resolved perirectal inflammation and surrounding abscess/fistula. - Leucocytosis- likely secondary to above - High lipase- no pancreatitis on CT, will monitor 09/02/2018 patient is feeling worse today with increased almost constant right lower quadrant pain. Recent diagnosis of C. difficile toxin and patient is currently on p.o. vancomycin. Initially patient states before admission he was going to the bathroom multiple times a day and incontinent now today for the first time states no bowel movement which concerns him. Patient also notes that there are times that he uses digital stimulation for his bowels to move. Current hemoglobin 12.6, WBC count 12.5, PT/INR 1.2. Note that IV steroids were discontinued today per hospitalist secondary to the diagnosis of C. difficile. Sedimentation rate 7, C-reactive protein 1.7 elevated. Lipase level back to normal range. Discussed with patient the need for abstinence of smoking, any alcohol, and a healthy diet. Supportive care to patient and his mother. Plan Diet clear liquids for now Swallowing Zosyn Continue IV hydration P.o. vancomycin Discussed with patient follow-up in the GI office once he is out of the hospital so we can help him get back on Biologics to control his Crohn's disease. Pain meds per attending Supportive care Based on symptoms further recommendations to follow Patient was seen per myself and Dr. Oliva, note was written on his behalf <Makayla Lowry - Last Filed: 09/02/18 15:59> - Plan Patient seen and examined Agree with above Continue with current supportive care Monitor labs Solu-Medrol was discontinued we will start prednisone 30 mg daily <Deonte Oliva - Last Filed: 09/02/18 19:46>
[2018-09-02] MEDS ORDERED: Acetaminophen 325 MG Tablet PO PRN (14:30)
--- NOTE | 2018-09-02 14:38 | P.PNIM ---
Subjective Interval history: Patient complains of mild abdominal pain. Physical Exam Vital signs: Vital Signs 09/01/18 16:00 09/01/18 17:08 09/01/18 20:00 Temperature 97.7 F 98 F Pulse Rate 67 67 Respiratory Rate 18 17 20 Blood Pressure 108/59 L 114/60 Pulse Oximetry 98 09/02/18 01:46 09/02/18 07:57 09/02/18 12:00 Temperature 97.9 F 98.0 F 97.7 F Pulse Rate 68 67 80 Respiratory Rate 16 17 16 Blood Pressure 103/56 L 114/89 102/53 L Pulse Oximetry 98 98 09/02/18 13:00 09/02/18 13:40 Temperature Pulse Rate Respiratory Rate 17 17 Blood Pressure Pulse Oximetry Intake & Output 09/01/18 09/02/18 09/02/18 18:59 06:59 18:59 Intake Total 3070 / 3070 1100 / 1100 1050 / 1050 Output Total 600 / 600 Balance 3070 / 3070 500 / 500 1050 / 1050 Weight 66.2 kg 66.3 kg Intake: IV 2350 / 2350 1100 / 1100 1050 / 1050 1/2 Normal Saline Inj 1,000 ML 1000 / 1000 1000 / 1000 1000 / 1000 @ 125 mls/hr IV.CONT .Q8H [facility] Rx#:[id number] Zosyn 3.375 GM Premix 50 ML @ 100 / 100 100 / 100 50 / 50 100 mls/hr IV.SIG Q6H TAN Rx#: [id number] NS Inj 1,000 ML @ Wide Open IV. 1000 / 1000 SIG BOLUS ONE Rx#:[id number] Vancomycin Inj 1,000 MG In NS 250 / 250 Inj 250 ML @ 200 mls/hr IV.SIG ONCE ONE Rx#:[id number] Oral 720 / 720 Output: Urine 600 / 600 Other: # Voids 2 Date of Last Bowel Movement 09/01/18 Weight On Admission 65.77 kg Narrative: General patient in no acute distress HEENT extraocular movements are intact, clear oropharyngeal mucosa, no JVD Cardiovascular S1-S2 audible, RRR, no murmurs rubs or gallops Respiratory clear to auscultation bilaterally Abdomen soft, bilateral lower abdominal tenderness on palpation, normal bowel sounds, well-healed vertical scar in the mid abdomen. Extremities no edema 2+ distal pulses in bilateral upper and lower extremities Neuro cranial nerves II through XII intact Results - Labs CBC & Chem 7: 09/02/18 03:35 09/02/18 03:35 Laboratory Results - last 24 hr 09/01/18 09/02/18 09/02/18 13:49 01:44 03:35 WBC RBC Hgb Hct MCV MCH MCHC RDW Plt Count MPV Neut % (Auto) Lymph % (Auto) [place] % (Auto) Eos % (Auto) Baso % (Auto) Neut # (Auto) Lymph # (Auto) [place] # (Auto) Eos # (Auto) Baso # (Auto) WBC Differential Differential Comment Sodium 145 Potassium 3.7 Chloride 109 H Carbon Dioxide 27.1 Anion Gap 9 BUN 8 Creatinine 0.86 Estimated GFR Greater than 89 Random Glucose 137 H Calcium 8.4 L Magnesium 1.9 C-Reactive Protein 1.47 H Lipase 125 Stool C.difficile Ag Positive H Stool C.difficile Toxin Negative Stl C.difficile Tox PCR Positive H St C. diff Tox Epid 027 Negative Hepatitis A IgM Ab Hep Bs Antigen Hep B Core IgM Ab Hep C IgG Ab TB (QFT) Gold In Tube TB Test (QFT) Nil TB Test Mitogen - Nil TB Test Antigen - Nil 09/02/18 09/02/18 09/02/18 03:35 03:35 03:35 WBC 12.5 H RBC 3.99 L Hgb 12.6 L Hct 36.9 L MCV 92.5 MCH 31.5 MCHC 34.1 RDW 14.5 Plt Count 258 MPV 6.6 L Neut % (Auto) 92.2 H Lymph % (Auto) 6.6 L [place] % (Auto) 1.0 Eos % (Auto) 0.0 Baso % (Auto) 0.2 Neut # (Auto) 11.5 H Lymph # (Auto) 0.8 L [place] # (Auto) 0.1 Eos # (Auto) 0.0 Baso # (Auto) 0.0 WBC Differential . Differential Comment Auto diff final Sodium Potassium Chloride Carbon Dioxide Anion Gap BUN Creatinine Estimated GFR Random Glucose Calcium Magnesium C-Reactive Protein Lipase Stool C.difficile Ag Stool C.difficile Toxin Stl C.difficile Tox PCR St C. diff Tox Epid 027 Hepatitis A IgM Ab Nonreactive Hep Bs Antigen Nonreactive Hep B Core IgM Ab Nonreactive Hep C IgG Ab Nonreactive TB (QFT) Gold In Tube Cancelled TB Test (QFT) Nil Cancelled TB Test Mitogen - Nil Cancelled TB Test Antigen - Nil Cancelled Microbiology 09/01/18 04:20 Blood - Peripheral Aerobic Blood Culture - Preliminary No growth in 1 day 09/01/18 04:20 Blood - Peripheral Anaerobic Blood Culture - Preliminary No growth in 1 day 09/01/18 04:15 Blood - Peripheral Aerobic Blood Culture - Preliminary No growth in 1 day 09/01/18 04:15 Blood - Peripheral Anaerobic Blood Culture - Preliminary No growth in 1 day 09/02/18 01:44 Stool Stool for WBCs - Final Moderate WBC'S Assessment and Plan - Plan This patient is a 23-year-old male with a known diagnosis of Crohn's disease. He was recently seen by Dr. Marc at our facility and had a darrell-rectal abscess drained. He now presents with complaints of bilateral lower abdominal pain and the cramping-like sensation. He also reports approximately 7 bowel movements per day. 1. Crohn's exacerbation 2. C. difficile colitis CT scan of the abdomen and pelvis shows significant improvement of a previous perirectal abscess that was drained, and other findings consistent with Crohn's disease. The patient will be continued on IV fluids. GI evaluated the patient and started the patient on mesalamine. ESR CRP pending. IV Solu-Medrol was held as the patient currently has C. difficile. Continue IV antibiotics. Follow-up blood cultures, and stool culture Lipase was elevated around 450 and has now down trended to 125. Continue IV fluids. Patient was counseled extensively on tobacco smoking cessation. Patient started on p.o. vancomycin. WBC count is downtrending. Patient is in contact isolation. Colorectal surgery evaluated the patient and no surgical intervention is necessary at this time. Patient previously had an ileostomy and did really well when he had a ileostomy. I do not have the patient's hospital course goes will depend on whether or not the patient may need another ileostomy as per colorectal surgery.
[2018-09-02] MEDS: predniSONE 10 MG Tablet PO SCH (21:09)
--- NOTE | 2018-09-02 21:43 | P.PNCS ---
Subjective Interval history: afebrile, VSS UO good velia liquids no BM Objective Result Diagrams: 09/02/18 03:35 09/02/18 03:35 Objective Remarks: PE Alert Abd - soft, non-tender, no tympany Assessment and Plan - Plan Imp: adv diet decr IVF C. diff toxin NEGATIVE cont Crohn's Rx
[2018-09-03] MEDS: Sodium Chloride 0.45 % Inj 1,000 ML IV.CONT SCH ×2 (02:06→09:13)
[2018-09-03] MEDS: Piperacil/Tazo 3.375 GM Premix 50 ML IV.SIG SCH ×4 (02:06→20:48)
[2018-09-03] MEDS: Morphine Sulfate Inj 2 MG/ML Vial IV.PUSH PRN ×4 (05:36→20:46)
[2018-09-03] MEDS: predniSONE 10 MG Tablet PO SCH (09:12)
[2018-09-03] MEDS: Mesalamine 800 MG Tablet DR PO SCH ×3 (09:13→17:16)
--- NOTE | 2018-09-03 13:09 | P.PNGI ---
Subjective Interval history: Patient has been up in room and bathroom today was able to shower. Still having some mild abdominal discomfort often known but much improved over the past 24 hours . regular diet ordered <Makayla Lowry - Last Filed: 09/03/18 13:09> Physical Exam Vital signs: Vital Signs 09/02/18 13:40 09/02/18 15:41 09/02/18 16:33 Temperature 97.6 F Pulse Rate 80 Respiratory Rate 17 16 17 Blood Pressure 98/50 L Pulse Oximetry 98 09/02/18 17:26 09/02/18 20:00 09/03/18 00:00 Temperature 97.6 F 97.9 F Pulse Rate 75 72 Respiratory Rate 17 18 17 Blood Pressure 129/62 128/61 Pulse Oximetry 98 97 09/03/18 08:00 09/03/18 12:00 Temperature 95.5 F L 97.6 F Pulse Rate 57 L 59 L Respiratory Rate 16 16 Blood Pressure 110/64 137/65 Pulse Oximetry 98 99 Intake & Output 09/02/18 09/03/18 09/03/18 18:59 06:59 18:59 Intake Total 2099 Balance 2099 Weight 67 kg Intake: IV 1100 / 1100 2099 1/2 Normal Saline Inj 1,000 ML 1000 / 1000 2000 / 2000 2000 / 2000 @ 125 mls/hr IV.CONT .Q8H [facility] Rx#:[id number] Zosyn 3.375 GM Premix 50 ML @ 100 / 100 100 / 100 50 / 50 100 mls/hr IV.SIG Q6H [facility] Rx#: [id number] Oral 1000 / 1000 Other: # Voids 3 3 Date of Last Bowel Movement 09/03/18 # Bowel Movements 1 - Constitutional mild distress, thin, cooperative, agitated (At times) - Routine HEENT Exam Head: Present: normocephalic ENT: Present: mucous membranes moist - Routine Neck Exam Present: supple - Routine Respiratory Exam Present: accessory muscle use (No obvious shortness of breath) - Routine Cardiovascular Exam Present: S1, S2 - Routine Abdominal Exam Present: soft (Flat, some generalized abdominal pain off and on mild) - Routine Skin Exam Present: intact, pallor - Routine Neurological Exam Present: alert <Makayla Lowry - Last Filed: 09/03/18 13:09> Vital signs: Vital Signs 09/02/18 16:33 09/02/18 17:26 09/02/18 20:00 Temperature 97.6 F Pulse Rate 75 Respiratory Rate 17 17 18 Blood Pressure 129/62 Pulse Oximetry 98 09/03/18 00:00 09/03/18 08:00 09/03/18 12:00 Temperature 97.9 F 95.5 F L 97.6 F Pulse Rate 72 57 L 59 L Respiratory Rate 17 16 16 Blood Pressure 128/61 110/64 137/65 Pulse Oximetry 97 98 99 Intake & Output 09/02/18 09/03/18 09/03/18 18:59 06:59 18:59 Intake Total 2099 Balance 2099 Weight 67 kg Intake: IV 1100 / 1100 2099 1/2 Normal Saline Inj 1,000 ML 1000 / 1000 2000 / 2000 2000 / 2000 @ 125 mls/hr IV.CONT .Q8H [facility] Rx#:[id number] Zosyn 3.375 GM Premix 50 ML @ 100 / 100 100 / 100 100 / 100 100 mls/hr IV.SIG Q6H [facility] Rx#: [id number] Oral 1000 / 1000 Other: # Voids 3 3 Date of Last Bowel Movement 09/03/18 # Bowel Movements 1 <Deonte Oliva - Last Filed: 09/03/18 16:04> Results - Labs CBC & Chem 7: 09/02/18 03:35 09/02/18 03:35 Laboratory Results - last 24 hr 09/02/18 09/02/18 15:59 15:59 ESR 5 C-Reactive Protein 1.30 H Microbiology 09/01/18 04:20 Blood - Peripheral Aerobic Blood Culture - Preliminary No growth in 2 days 09/01/18 04:20 Blood - Peripheral Anaerobic Blood Culture - Preliminary No growth in 2 days 09/01/18 04:15 Blood - Peripheral Aerobic Blood Culture - Preliminary No growth in 2 days 09/01/18 04:15 Blood - Peripheral Anaerobic Blood Culture - Preliminary No growth in 2 days 09/02/18 01:44 Stool Stool for WBCs - Final Moderate WBC'S <Makayla Lowry - Last Filed: 09/03/18 13:09> - Labs CBC & Chem 7: 09/02/18 03:35 09/02/18 03:35 Laboratory Results - last 24 hr 09/02/18 09/02/18 15:59 15:59 ESR 5 C-Reactive Protein 1.30 H Microbiology 09/01/18 04:20 Blood - Peripheral Aerobic Blood Culture - Preliminary No growth in 2 days 09/01/18 04:20 Blood - Peripheral Anaerobic Blood Culture - Preliminary No growth in 2 days 09/01/18 04:15 Blood - Peripheral Aerobic Blood Culture - Preliminary No growth in 2 days 09/01/18 04:15 Blood - Peripheral Anaerobic Blood Culture - Preliminary No growth in 2 days <Deonte Oliva E - Last Filed: 09/03/18 16:04> Assessment and Plan - Plan - Crohn flare with abd/rectal pain, N/V- known diagnosis of Crohn's disease since the age 18. 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 Pt had benign colonoscopy on 07/14/18 noting normal mucosa, no obvious cobblestoning or polyps seen, the rectal fault appeared normal with some inflammatory change along the dentate line ave very distal recta mucosa. He also under went I&D fo ischiorectal abscess and posterior fistula. He then under went drainage of a complex ischiorectal abscess on 08/01/18. Abdomen/Pelvis CT 09/01/18 showed Nearly resolved perirectal inflammation and surrounding abscess/fistula. Circumferential abnormal wall thickening of multiple ileal bowel loops consistent with Crohn's involvement without evidence for obstruction. No intercurrent bowel infarction or perforation or new intra-abdominal abscess. - Rectal abscess drained by Dr. Marc on 08/01/18- Ct showed Nearly resolved perirectal inflammation and surrounding abscess/fistula. - Leucocytosis- likely secondary to above - High lipase- no pancreatitis on CT, will monitor patient is feeling worse today with increased almost constant right lower quadrant pain. Recent diagnosis of C. difficile toxin and patient is currently on p.o. vancomycin. Initially patient states before admission he was going to the bathroom multiple times a day and incontinent now today for the first time states no bowel movement which concerns him. Patient also notes that there are times that he uses digital stimulation for his bowels to move. Current hemoglobin 12.6, WBC count 12.5, PT/INR 1.2. Note that IV steroids were discontinued today per hospitalist secondary to the diagnosis of C. difficile. Sedimentation rate 7, C-reactive protein 1.7 elevated. Lipase level back to normal range. Discussed with patient the need for abstinence of smoking, any alcohol, and a healthy diet. Supportive care to patient and his mother. 09/03/2018 patient is able to get up in the bathroom and shower and has been placed on regular food. Abdominal pain and discomfort has improved over the past 24 hours. No obvious nausea or vomiting . C. difficile toxin is negative. Vancomycin p.o. DC'd patient has been transitioned to prednisone 30 mg p.o. and will need to continue medication and follow-up in the GI office 1 week after discharge. Patient also needs to continue Asacol on current dose. Plan is to transition patient back to Biologics in an attempt to stabilize patient's Crohn's disease. Plan Diet regular diet, eat slowly and chew food well, as long as patient can eat he should be stable from a GI perspective for discharge Encourage oral hydration Follow-up GI office in 1 week Pain meds per attending Supportive care Patient was seen per myself and Dr. Oliva, note was written on his behalf <Makayla Lowry - Last Filed: 09/03/18 13:09> - Plan Patient seen and examined Agree with above Continue with current supportive care Monitor labs Patient tolerating intake and as such is probably stable for discharge at this point from a GI standpoint Patient will need to be on prednisone and will need to finish his antibiotic course Probably he will need some Phenergan for nausea as needed and probably will need some form of pain management such as Percocet but will defer to attending physician Patient follow-up with GI post discharge <Deonte Oliva - Last Filed: 09/03/18 16:04>
[2018-09-03 19:47] VITALS: RESP 17
--- NOTE | 2018-09-03 19:53 | P.PNIM ---
Subjective Interval history: Patient complains of abdominal pain. He also had diarrhea this morning. Denies noticing any blood in the stool. He does not have any other complaints. Physical Exam Vital signs: Vital Signs 09/02/18 20:00 09/03/18 00:00 09/03/18 08:00 Temperature 97.6 F 97.9 F 95.5 F L Pulse Rate 75 72 57 L Respiratory Rate 18 17 16 Blood Pressure 129/62 128/61 110/64 Pulse Oximetry 98 97 98 09/03/18 12:00 09/03/18 16:00 09/03/18 19:47 Temperature 97.6 F 97.3 F L 97.9 F Pulse Rate 59 L 66 63 Respiratory Rate 16 16 17 Blood Pressure 137/65 123/63 127/72 Pulse Oximetry 99 99 100 Intake & Output 09/03/18 09/03/18 09/04/18 06:59 18:59 06:59 Intake Total 2099 / 2099 3100 / 3100 Balance 2099 / 2099 3100 / 3100 Weight 67 kg Intake: IV 2099 / 2099 2099 / 2099 1/2 Normal Saline Inj 1,000 ML 2000 / 2000 2000 / 2000 @ 125 mls/hr IV.CONT .Q8H TAN Rx#:[id number] Zosyn 3.375 GM Premix 50 ML @ 100 / 100 100 / 100 100 mls/hr IV.SIG Q6H TAN Rx#: [id number] Oral 1000 / 1000 Other: # Voids 3 3 Date of Last Bowel Movement 09/03/18 # Bowel Movements 2 Narrative: General patient in no acute distress HEENT extraocular movements are intact, clear oropharyngeal mucosa, no JVD Cardiovascular S1-S2 audible, RRR, no murmurs rubs or gallops Respiratory clear to auscultation bilaterally Abdomen soft, bilateral lower abdominal tenderness on palpation, normal bowel sounds, well-healed vertical scar in the mid abdomen. Extremities no edema 2+ distal pulses in bilateral upper and lower extremities Neuro cranial nerves II through XII intact Results - Labs CBC & Chem 7: 09/02/18 03:35 09/02/18 03:35 Microbiology 09/01/18 04:20 Blood - Peripheral Aerobic Blood Culture - Preliminary No growth in 2 days 09/01/18 04:20 Blood - Peripheral Anaerobic Blood Culture - Preliminary No growth in 2 days 09/01/18 04:15 Blood - Peripheral Aerobic Blood Culture - Preliminary No growth in 2 days 09/01/18 04:15 Blood - Peripheral Anaerobic Blood Culture - Preliminary No growth in 2 days Assessment and Plan - Plan This patient is a 23-year-old male with a known diagnosis of Crohn's disease. He was recently seen by Dr. Marc at our facility and had a darrell-rectal abscess drained. He now presents with complaints of bilateral lower abdominal pain and the cramping-like sensation. He also reports approximately 7 bowel movements per day. 1. Crohn's exacerbation 2. C. difficile colitis CT scan of the abdomen and pelvis shows significant improvement of a previous perirectal abscess that was drained, and other findings consistent with Crohn's disease. Patient is still complaining of abdominal pain as well as loose stools this morning. Continue IV and p.o. pain medications as needed. The patient will be continued on IV fluids. GI evaluated the patient and started the patient on mesalamine. C. difficile toxin was negative, p.o. vancomycin will be discontinued. Continue IV antibiotics. Follow-up blood cultures, and stool culture, lipase has normalized Patient was counseled extensively on tobacco smoking cessation. I will follow-up with GI on specific recommendations on discharge the patient will need follow-up after discharge with GI. Patient will likely be discharged tomorrow.
[2018-09-04] MEDS: Morphine Sulfate Inj 2 MG/ML Vial IV.PUSH PRN ×3 (00:47→10:08)
[2018-09-04 01:40] VITALS: BP 132/72; PULSE 58; TEMP 98; O2SAT 98
[2018-09-04] MEDS: Piperacil/Tazo 3.375 GM Premix 50 ML IV.SIG SCH ×2 (04:00→07:59)
[2018-09-04] MEDS: Mesalamine 800 MG Tablet DR PO SCH (07:59)
[2018-09-04] MEDS: predniSONE 10 MG Tablet PO SCH (07:59)
--- NOTE | 2018-09-04 09:40 | P.DS ---
Date of admission: 09/01/18 08:26 Primary care physician: No Primary Care Physician Brief History from admission: This patient is a 23-year-old male with a known diagnosis of Crohn's disease since the age of 18. Initially after being diagnosed with Crohn's disease the patient had a colostomy for approximately 1 year. He presented to our emergency department with complaints of rectal and bilateral lower abdominal pain that is been ongoing for the past few days. He reports that his symptoms are similar to when he had an abscess drained by Dr. Marc approximately a month ago. He has not been on any medications for Crohn's disease for approximately 3 years because of insurance reasons. He is from [place] and had regular follow-up with a GI specialist in [place]. He states that he has been having approximately 7 bowel movements per day however denies seeing blood in his stool. He has been smoking tobacco since the age of 15 and continues to smoke half a pack per day. He also reports subjective fevers. He denies having any chest pain, no cough, no shortness of breath, no urinary symptoms. He does not have any other complaints. DS: Medications - Discharge Medications Prescriptions: mesalamine 1,600 mg PO TID 10 Days #30 tab prednisone 30 mg PO DAILY #10 tab DS: Summary Hospital Course: This patient is a 23-year-old male with a known diagnosis of Crohn's disease. He was recently seen by Dr. Marc at our facility and had a darrell-rectal abscess drained. He now presents with complaints of bilateral lower abdominal pain and the cramping-like sensation. He also reports approximately 7 bowel movements per day. 1. Crohn's exacerbation The patient was admitted and started on IV antibiotics as well as treatment for Crohn's disease. A CT scan of the abdomen and pelvis was done which showed significant improvement of the patient's previous perirectal abscess that had been drained by colorectal surgery. Colorectal surgery was consulted to evaluate the patient however did not recommend any surgical intervention at this time. GI was also consulted to evaluate the patient and started the patient on mesalamine as well as steroids. Stool cultures and C. difficile results were negative. GI recommends that the patient follow-up within 1 week for further management of his Crohn's disease. He will be discharged today on prednisone and mesalamine as per GI recommendations. He has remained afebrile and his vital signs are stable. His symptoms have improved significantly and he will be discharged home today. He was given instructions on how to obtain a primary care physician. 2. Tobacco smoking The patient was counseled extensively on the risks of tobacco smoking given his history of Crohn's disease. He was advised to avoid tobacco smoking as this could likely be a trigger to his exacerbations. He agrees to stop smoking at this time. - Time Spent with Patient Total time spent providing and/or coordinating discharge services: Greater than 30 minutes - Quality: VTE Deep Vein Thrombosis/Pulmonary Embolism Present on Admission: No Exam Vital signs: Vital Signs 09/03/18 12:00 09/03/18 16:00 09/03/18 19:47 Temperature 97.6 F 97.3 F L 97.9 F Pulse Rate 59 L 66 63 Respiratory Rate 16 16 17 Blood Pressure 137/65 123/63 127/72 Pulse Oximetry 99 99 100 09/04/18 00:00 Temperature 98.0 F Pulse Rate 58 L Respiratory Rate 17 Blood Pressure 132/72 Pulse Oximetry 98 Intake & Output 09/03/18 09/04/18 09/04/18 18:59 06:59 18:59 Intake Total 3100 / 3100 750 / 750 100 / 100 Balance 3100 / 3100 750 / 750 100 / 100 Weight 66.4 kg Intake: IV 2100 / 2100 50 / 50 100 / 100 1/2 Normal Saline Inj 1,000 ML 2000 / 2000 @ 125 mls/hr IV.CONT .Q8H TAN Rx#:[id number] Zosyn 3.375 GM Premix 50 ML @ 100 / 100 50 / 50 100 / 100 100 mls/hr IV.SIG Q6H TAN Rx#: [id number] Oral 1000 / 1000 700 / 700 Other: # Voids 3 2 Date of Last Bowel Movement 09/03/18 09/03/18 09/03/18 # Bowel Movements 2 Narrative: General patient in no acute distress HEENT extraocular movements are intact, clear oropharyngeal mucosa, no JVD Cardiovascular S1-S2 audible, RRR, no murmurs rubs or gallops Respiratory clear to auscultation bilaterally Abdomen soft, nontender, nondistended, normal bowel sounds Extremities no edema 2+ distal pulses in bilateral upper and lower extremities Neuro cranial nerves II through XII intact Results Procedures completed during hospitalization: none Labs on day of discharge: Preliminary micro results at discharge 09/01/18 04:20 Aerobic Blood Culture - Preliminary Blood - Peripheral No growth in 2 days Anaerobic Blood Culture - Preliminary No growth in 2 days 09/01/18 04:15 Aerobic Blood Culture - Preliminary Blood - Peripheral No growth in 2 days Anaerobic Blood Culture - Preliminary No growth in 2 days - Impressions ITS Impressions Abdomen/Pelvis CT 09/01/18 05:20 CONCLUSION: 1. Nearly resolved perirectal inflammation and surrounding abscess/fistula. 2. Circumferential abnormal wall thickening of multiple ileal bowel loops consistent with Crohn's involvement without evidence for obstruction. 3. No intercurrent bowel infarction or perforation or new intra-abdominal abscess. Discharge Plan - Discharge Disposition Patient Disposition: Discharge Home - Discharge Condition Condition: Good - Discharge Order Discharge Orders: Discharge Order (Routine); Ordered 09/04/18 Ordered By: Hannah De Guzman - Physicians Team Primary Care Provider: Primary Care Colleen Ortiz Attending Provider: Hannah De Guzman Other Providers: Andrew Marc MD ; Deonte Oliva MD
[2018-09-04 14:29] LABS: TB1 Ag minus Nil Result 0 IU/mL
== END 2018-09-04 10:40 | disposition home or self-care (01) ==
LOC: NEPE 03:25 → INTOOBSV 08:26 → NEDA 08:26 → N07 09:43
PROVIDERS: ADMIT Hospitalist; ATTEND Hospitalist